=== PATIENT | female | born 1950 | race Hispanic/Latino ===

== ENCOUNTER 2017-07-06 20:11 | Emergency (ER) | payer MEDICARE, MEDICAID ==
[2017-07-06 20:11] VITALS: BMI 25.1
[2017-07-06 20:13] VITALS: RESP 18; TEMP 98.3
--- NOTE | 2017-07-06 22:17 | US ---
EXAM: US Abdomen Limited, Right Upper Quadrant CLINICAL HISTORY: 66 years old, female; Pain; Abdominal pain; Epigastric; Additional info: Ruq pain TECHNIQUE: Real-time ultrasound of the right upper quadrant with image documentation. COMPARISON: No relevant prior studies available. FINDINGS: Liver: Enlarged, 18.1 cm. Normal echogenicity. No mass. No intrahepatic bile duct dilatation. Gallbladder: 1.3 cm nonshadowing, nonmobile echogenic focus within fundus. Sludge. No wall thickening. No pericholecystic fluid. No sonographic Thomson's sign. Common bile duct: No dilatation. No stones. Pancreas: Unremarkable as visualized. Right kidney: Normal echogenicity. No hydronephrosis. IMPRESSION: 1. Gallbladder lesion. DDX: Adherent nonshadowing gallstone, large polyp, neoplasm. 2. Gallbladder sludge. 3. Incidental/non-acute findings are described above.
--- NOTE | 2017-07-06 22:21 | ED PDOC ---
HPI: Abdomen Time Seen by Provider: 07/06/17 20:20 Chief Complaint (Nursing): Abdominal Pain Chief Complaint (Provider): Abdominal Pain History Per: Patient History/Exam Limitations: no limitations Onset/Duration Of Symptoms: Days (x1 week) Current Symptoms Are (Timing): Still Present Location Of Pain/Discomfort: RUQ Additional Complaint(s): Zoya Salcedo, a 66 year old female, with past medical history of CVA with left hemiparesis, hypothyroidism, DVT, neuropathy presents to ED complaining of abdominal pain x1 week. The patient reports that the pain is worsening and radiates from the right side of her abdomen to her righ lower back. She states that she has taken Motrin, Mylanta and Pepcid with no relief. Denies associated constipated, nausea, vomiting, urinary symptoms. Past Medical History Reviewed: Historical Data, Nursing Documentation, Vital Signs Vital Signs: Last Vital Signs Temp 98.3 F 07/06/17 20:12 Pulse 70 07/07/17 00:30 Resp 18 07/07/17 00:30 BP 130/68 07/07/17 00:30 Pulse Ox 98 07/07/17 00:32 - Medical History PMH: Anxiety (OCD), CVA, Depression, Deep Vein Thrombosis (11/2014), HTN, Hypercholesterolemia, Hypothyroidism Denies: HIV, Chronic Kidney Disease - Surgical History Surgical History: No Surg Hx - Family History Family History: States: Unknown Family Hx - Social History Current smoker - smoking cessation education provided: No Alcohol: None Drugs: Denies - Home Medications Home Medications: Ambulatory Orders Medication Instructions Recorded Clopidogrel [Plavix] 75 mg PO DAILY #0 tab 12/02/15 Aspirin [Ecotrin] 81 mg PO DAILY 04/27/16 Atorvastatin [Lipitor] 80 mg PO HS 04/30/16 Levothyroxine [Synthroid] 125 mcg PO DAILY@0630 #0 tab 05/19/16 Gabapentin [Neurontin] 300 mg PO BID 09/19/16 Melatonin [Melatin] 1 tab PO HS 09/19/16 Sertraline [Zoloft] PO DAILY 09/19/16 Cyclobenzaprine [Flexeril] 5 mg PO TID PRN #60 tab 09/20/16 Ibuprofen [Motrin Tab] 600 mg PO Q8 PRN #30 tab 09/20/16 oxyCODONE/Acetaminophen [Percocet 1 tab PO Q4 PRN #10 tab 09/20/16 5/325 mg Tab] traMADol [Ultram] 50 mg PO Q6 #12 tab 07/06/17 - Allergies Allergies/Adverse Reactions: Allergies Allergy/AdvReac Type Severity Reaction Status Date / Time No Known Allergies Allergy Verified 08/16/16 16:29 Review of Systems ROS Statement: Except As Marked, All Systems Reviewed And Found Negative Gastrointestinal: Positive for: Abdominal Pain. Negative for: Nausea, Vomiting , Constipation Genitourinary Female: Negative for: Dysuria, Frequency, Incontinence, Hematuria Physical Exam - Reviewed Nursing Documentation Reviewed: Yes Vital Signs Reviewed: Yes - Physical Exam Appears: Positive for: Non-toxic, No Acute Distress Head Exam: Positive for: ATRAUMATIC, NORMAL INSPECTION, NORMOCEPHALIC Skin: Positive for: Normal Color, Warm, Dry. Negative for: Rash Eye Exam: Positive for: Normal appearance, EOMI, PERRL. Negative for: Nystagmus ENT: Positive for: Normal ENT Inspection. Negative for: Nasal Congestion, Tonsillar Exudate Neck: Positive for: Normal, Painless ROM, Supple Cardiovascular/Chest: Positive for: Regular Rate, Rhythm, Chest Non Tender. Negative for: Tachycardia Respiratory: Positive for: Normal Breath Sounds. Negative for: Wheezing, Respiratory Distress Gastrointestinal/Abdominal: Positive for: Bowel Sounds, Soft, Tenderness (Right upper quadrant tenderness). Negative for: Guarding, Rebound Back: Positive for: Normal Inspection. Negative for: L CVA Tenderness, R CVA Tenderness Extremity: Positive for: Normal ROM. Negative for: Tenderness, Deformity, Swelling Neurologic/Psych: Positive for: Alert, Oriented, Gait, Other (left charly-paresis due to history of stroke.) - Laboratory Results Result Diagrams: 07/06/17 23:28 07/06/17 23:28 - ECG O2 Sat by Pulse Oximetry: 98 (RA) Pulse Ox Interpretation: Normal Medical Decision Making Medical Decision Makin Initial Impression: 66 y/o female presenting with right upper quadrant pain Initial Plan: * EKG * CMP * Lipase * CBC * Toradol 10mg IV * US Abdomen Limited * Reevaluation Time: 23:00 Clinical Impression: Biliary Colic, Improved --Ultrasound and labs show no clinically significant abnormalities. --Patient is stable for discharge in ambulance due to left sided hemiparalysis Scribe Attestation Documented by Rochelle Santana and Warner Kong, acting as a scribe for Eder Nix MD. Provider Attestation All medical record entries made by the Scribe were at my direction and personally dictated by me. I have reviewed the chart and agree that the record accurately reflects my personal performance of the history, physical exam, medical decision making, and the department course for this patient. I have also personally directed, reviewed, and agree with the discharge instructions and disposition. Disposition - Clinical Impression Clinical Impression: Biliary colic - Patient ED Disposition Is Patient to be Admitted: No Counseled Patient/Family Regarding: Studies Performed, Diagnosis - Disposition Disposition: Routine/Home Disposition Time: 23:00 Condition: STABLE Prescriptions: traMADol [Ultram] 50 mg PO Q6 #12 tab Instructions: Biliary Colic (ED) Forms: [facility] (Slovak) - POA Present On Arrival: None
[2017-07-06 23:32] LABS: BASO # 0.1 K/uL (0.0-0.2); BASO % 0.7 % (0.0-2.0); EOS % 0.1 % (0.0-4.0); HEMATOCRIT 34.1 % (34.0-47.0); LYMPH # 1.6 K/uL (1.0-4.3); LYMPH % 15.2 % (20.0-40.0); MEAN CELL VOLUME 95.5 fl (81.0-99.0); MEAN CORPUSCULAR HEMOGLOBIN 31.2 pg (27.0-31.0); MEAN CORPUSCULAR HGB CONC 32.6 g/dL (33.0-37.0); MEAN PLATELET VOLUME 9.7 fl (7.2-11.7); MONO # 0.8 K/uL (0.0-0.8); NEUT # 7.9 K/uL (1.8-7.0); NRBC % 0.1 % (0.0-0.0); RED CELL DISTRIBUTION WIDTH 15.1 % (11.5-14.5); WHITE BLOOD COUNT 10.4 K/uL (4.8-10.8)
[2017-07-06 23:42] LABS: ALB/GLOB RATIO 1.1 (1.0-2.1); ALKALINE PHOSPHATASE 109 U/L (38-126); ALT/SGPT 26 U/L (9-52); AST/SGOT 30 U/L (14-36); BILIRUBIN,TOTAL 1.1 mg/dl (0.2-1.3); BLOOD UREA NITROGEN 15 mg/dl (7-17); CALCIUM 9.3 mg/dL (8.4-10.2); CARBON DIOXIDE 22 mmol/L (22-30); CHLORIDE 106 mmol/L (98-107); GFR AFRICAN-AMERICAN > 60; GLUCOSE,RANDOM 113 mg/dL (65-105); LIPASE 66 U/L (23-300); POTASSIUM 4.2 MMOL/L (3.6-5.0); SODIUM 145 mmol/l (132-148); TOTAL PROTEIN 7.9 G/DL (6.3-8.2)
[2017-07-07 00:30] VITALS: BP 130/68; PULSE 70
[2017-07-07 00:33] VITALS: O2SAT 98
--- NOTE | 2017-07-07 12:06 | CARD ---
APPROVED REPORT EKG Measurement Heart [id number] MA 128P3 [id number] <Conclusion> Normal sinus rhythm
== END 2017-07-07 00:31 | disposition home or self-care (01) ==
LOC: H.ER 20:11
DX: K80.51 Calculus of bile duct without cholangitis or cholecystitis with obstruction (principal); Z86.73 Personal history of transient ischemic attack (TIA), and cerebral infarction without residual deficits; E03.9 Hypothyroidism, unspecified
CPT/HCPCS: 76705; 80053; 83690; 85025; 93005; 96374; 99284; J1885

== ENCOUNTER 2017-07-10 21:52 | Inpatient (IN) | payer MEDICARE, OTHER ==
[2017-07-10 21:52] VITALS: BMI 25.1
--- NOTE | 2017-07-10 22:45 | ED PDOC ---
HPI: Abdomen Time Seen by Provider: 07/10/17 22:37 Chief Complaint (Nursing): Abdominal Pain Chief Complaint (Provider): Abdominal Pain History Per: Patient History/Exam Limitations: no limitations Onset/Duration Of Symptoms: Days (x 5 days) Current Symptoms Are (Timing): Still Present Additional Complaint(s): Patient is a 66 y/o female with a past medical of previous stroke, hypertension, deep vein thrombosis, hypothyroidism, and neuropathy, who presents to the ED complaining of right upper quadrant abdominal pain x 5 days. Patient was seen in this facility 5 days ago and was diagnosed with biliary colic, but reports the pain has become progressively worse since going home. She reports taking Ibuprofen just [employer] with little to no relief, but denies any further symptoms. PMD: [facility] Past Medical History Reviewed: Historical Data, Nursing Documentation, Vital Signs Vital Signs: Last Vital Signs Temp 97.9 F 07/11/17 01:45 Pulse 73 07/11/17 01:45 Resp 16 07/11/17 01:45 BP 128/73 07/11/17 01:45 Pulse Ox 96 07/11/17 02:13 - Medical History PMH: Anxiety (OCD), CVA, Depression, Deep Vein Thrombosis (11/2014), HTN, Hypercholesterolemia, Hypothyroidism Denies: HIV, Chronic Kidney Disease - Surgical History Surgical History: No Surg Hx - Family History Family History: States: No Known Family Hx, Unknown Family Hx - Social History Current smoker - smoking cessation education provided: No Alcohol: None Drugs: Denies - Home Medications Home Medications: Ambulatory Orders Medication Instructions Recorded Clopidogrel [Plavix] 75 mg PO DAILY #0 tab 12/02/15 Aspirin [Ecotrin] 81 mg PO DAILY 04/27/16 Atorvastatin [Lipitor] 80 mg PO HS 04/30/16 Levothyroxine [Synthroid] 125 mcg PO DAILY@0630 #0 tab 05/19/16 Gabapentin [Neurontin] 300 mg PO BID 09/19/16 Melatonin [Melatin] 1 tab PO HS 09/19/16 Sertraline [Zoloft] 12.5 mg PO DAILY 09/19/16 Cyclobenzaprine [Flexeril] 5 mg PO TID PRN #60 tab 09/20/16 Ibuprofen [Motrin Tab] 600 mg PO Q8 PRN #30 tab 09/20/16 oxyCODONE/Acetaminophen [Percocet 1 tab PO Q4 PRN #10 tab 09/20/16 5/325 mg Tab] traMADol [Ultram] 50 mg PO Q6 #12 tab 07/06/17 - Allergies Allergies/Adverse Reactions: Allergies Allergy/AdvReac Type Severity Reaction Status Date / Time No Known Allergies Allergy Verified 07/10/17 21:57 Review of Systems ROS Statement: Except As Marked, All Systems Reviewed And Found Negative Gastrointestinal: Positive for: Abdominal Pain (Right upper quadrant) Physical Exam - Reviewed Nursing Documentation Reviewed: Yes Vital Signs Reviewed: Yes - Physical Exam Appears: Positive for: Uncomfortable Head Exam: Positive for: ATRAUMATIC, NORMOCEPHALIC Skin: Positive for: Normal Color, Warm, Dry Eye Exam: Positive for: Normal appearance, EOMI, PERRL Neck: Positive for: Normal, Painless ROM, Supple Cardiovascular/Chest: Positive for: Regular Rate, Rhythm. Negative for: Murmur Respiratory: Positive for: Normal Breath Sounds. Negative for: Respiratory Distress Gastrointestinal/Abdominal: Positive for: Tenderness (right upper quadrant) Back: Positive for: Normal Inspection. Negative for: L CVA Tenderness, R CVA Tenderness, Vertebral Tenderness Extremity: Positive for: Normal ROM. Negative for: Pedal Edema Neurologic/Psych: Positive for: Alert, Oriented (x3), Other (Left Hemiparesis from previous stroke) - Laboratory Results Result Diagrams: 07/10/17 22:39 07/10/17 22:50 - ECG O2 Sat by Pulse Oximetry: 96 (RA) Pulse Ox Interpretation: Normal Medical Decision Making Medical Decision Making: Time: 22:38 Initial Impression: 66 y/o female with right upper quadrant pain Initial Plan: -CT Abdomen/Pelvis -EKG -Labs -Gastroenterology consult -Liquid Diet -Aluminum Hydroxide/Magnesium 30ml PO -Morphine 4mg IVP -Sodium Chloride 0.9% 1000 ml -Famotidine 20mg IVP -Ketorolac 10 mg IVP -Piperacillin/tazobact 3.375 gm -Zofran 4mg -Heplock insertion -Call gastroenterology Consult -Knee AE hose -Urinalysis -Admit to hospital routine 23:30 Labs reviewed, significant derangement of liver function tests which were normal 4 days ago. Case discussed with [place]. Patient will be admitted and placed in Obs for further workout and treatment. 23:45 CT abdomen/pelvis FINDINGS: Lower thorax: Bibasilar atelectasis. The bilateral lung bases are clear. ABDOMEN: Liver: No acute findings. Gallbladder and bile ducts: The gallbladder is distended, with mild intrahepatic biliary ductal dilatation. Gallbladder wall thickening, with adjacent inflammation is also noted. Pancreas: Enhances homogeneously. No ductal dilation. No discrete mass. Spleen: No acute findings. Adrenals: No acute findings. Kidneys and ureters: No acute findings. No hydronephrosis or renal calculi. No discrete solid mass. PELVIS: Bladder: No acute findings. Reproductive: No acute findings. Appendix: The air filled appendix is of normal caliber (series 2, image 57). ABDOMEN and PELVIS: Stomach and bowel: No obstruction. No mucosal thickening. Peritoneum: No significant fluid collection. No free air. Lymph nodes: No pathologically enlarged lymph nodes. Vasculature: Unremarkable. Bones: No acute fracture. IMPRESSION: Moderate gallbladder distention with wall thickening, findings suggestive of acute cholecystitis, for which clinical correlation is needed. 00:30 Diagnosis: Intractable abdominal pain biliary colic, acute cholecystitis Scribe Attestation: Documented by Wu Clemente, acting as a scribe for Eder Nix MD Provider Scribe Attestation: All medical record entries made by the Scribe were at my direction and personally dictated by me. I have reviewed the chart and agree that the record accurately reflects my personal performance of the history, physical exam, medical decision making, and the department course for this patient. I have also personally directed, reviewed, and agree with the discharge instructions and disposition. Disposition - Clinical Impression Clinical Impression: Cholecystitis - Patient ED Disposition Is Patient to be Admitted: Yes - Disposition Disposition Time: 22:40 Condition: FAIR
[2017-07-10 22:55] LABS: BASO # 0.1 K/uL (0.0-0.2); BASO % 0.8 % (0.0-2.0); EOS % 0.1 % (0.0-4.0); LYMPH # 1.4 K/uL (1.0-4.3); LYMPH % 11.4 % (20.0-40.0); MEAN CELL VOLUME 93.7 fl (81.0-99.0); MEAN CORPUSCULAR HEMOGLOBIN 30.3 pg (27.0-31.0); MEAN CORPUSCULAR HGB CONC 32.4 g/dL (33.0-37.0); MEAN PLATELET VOLUME 8.8 fl (7.2-11.7); MONO # 0.6 K/uL (0.0-0.8); MONO % 4.8 % (0.0-10.0); NEUT # 9.9 K/uL (1.8-7.0); NEUT % 82.9 % (50.0-75.0); RED CELL DISTRIBUTION WIDTH 14.6 % (11.5-14.5); WHITE BLOOD COUNT 11.9 K/uL (4.8-10.8)
[2017-07-10] MEDS: Sodium Chloride 0.9% 1,000 ML IV SCH (23:16)
[2017-07-10 23:37] LABS: ALB/GLOB RATIO 1.1 (1.0-2.1); ALKALINE PHOSPHATASE 380 U/L (38-126); ALT/SGPT 82 U/L (9-52); AST/SGOT 161 U/L (14-36); BLOOD UREA NITROGEN 17 mg/dl (7-17); CALCIUM 9.1 mg/dL (8.4-10.2); CARBON DIOXIDE 26 mmol/L (22-30); CHLORIDE 106 mmol/L (98-107); GFR AFRICAN-AMERICAN > 60; GLUCOSE,RANDOM 115 mg/dL (65-105); LIPASE 98 U/L (23-300); POTASSIUM 3.7 MMOL/L (3.6-5.0); SODIUM 145 mmol/l (132-148); TOTAL PROTEIN 7.4 G/DL (6.3-8.2)
[2017-07-11] MEDS ORDERED: Iohexol 300 100 ML IJ ONE (00:05)
[2017-07-11] MEDS ORDERED: Sodium Chloride 0.9% 50 ML IV ONE (00:06)
--- NOTE | 2017-07-11 00:49 | CT ---
EXAM: CT Abdomen and Pelvis With Intravenous Contrast CLINICAL HISTORY: 66 years old, female; Pain; Abdominal pain; Localized; Right upper quadrant (ruq); Prior surgery; Surgery date: 6+ months; Surgery type: Hysterectomy; Additional info: Ruq pain TECHNIQUE: Axial computed tomography images of the abdomen and pelvis with intravenous contrast. All CT scans at this facility use one or more dose reduction techniques, viz.: automated exposure control; ma/kV adjustment per patient size (including targeted exams where dose is matched to indication; i.e. head); or iterative reconstruction technique. Coronal and sagittal reformatted images were created and reviewed. CONTRAST: 95 mL of [id number] administered intravenously. COMPARISON: CT ABD AND PELVIS 12/16/2012 8:17:16 AM FINDINGS: Lower thorax: Bibasilar atelectasis. The bilateral lung bases are clear. ABDOMEN: Liver: No acute findings. Gallbladder and bile ducts: The gallbladder is distended, with mild intrahepatic biliary ductal dilatation. Gallbladder wall thickening, with adjacent inflammation is also noted. Pancreas: Enhances homogeneously. No ductal dilation. No discrete mass. Spleen: No acute findings. Adrenals: No acute findings. Kidneys and ureters: No acute findings. No hydronephrosis or renal calculi. No discrete solid mass. PELVIS: Bladder: No acute findings. Reproductive: No acute findings. Appendix: The air filled appendix is of normal caliber (series 2, image 57). ABDOMEN and PELVIS: Stomach and bowel: No obstruction. No mucosal thickening. Peritoneum: No significant fluid collection. No free air. Lymph nodes: No pathologically enlarged lymph nodes. Vasculature: Unremarkable. Bones: No acute fracture. IMPRESSION: Moderate gallbladder distention with wall thickening, findings suggestive of acute cholecystitis, for which clinical correlation is needed.
[2017-07-11] MEDS ORDERED: Piperacillin/Tazobact 3.375 GM in Sodium Chloride 0.9% 100 ML IV STA (00:51)
[2017-07-11] MEDS ORDERED: Alum-Mag Hydrox-Simethicone Susp (30 mL) PO STA (00:57)
[2017-07-11] MEDS ORDERED: Piperacillin/Tazobact 3.375 gm Inj IVPB ONE (01:17)
[2017-07-11] MEDS ORDERED: Alum-Mag Hydrox-Simethicone Susp (30 mL) ONE (01:17)
[2017-07-11] MEDS ORDERED: Oxycodone/Acetaminophen 5/325 mg Tab PO PRN (06:22)
[2017-07-11] MEDS: Levothyroxine 125 MCG TAB PO SCH (06:44)
--- NOTE | 2017-07-11 08:14 | CP.PCM.HP ---
History of Present Illness - History of Present Illness History of Present Illness: pt admitted for persistent ruq pain. had elev lft in ER. imaging from 2 days ago demonstrated ?? abnormality of gall bladder. at present pain is contrlled. ptstates pain feels like when she had h pylori. no f/c, n/v/d. po tolerant labs noted Present on Admission - Present on Admission Any Indicators Present on Admission: No Review of Systems - Gastrointestinal Gastrointestinal: As Per HPI, Abdominal Pain Past Patient History - Past Medical History & Family History Past Medical History?: Yes - Past Social History Smoking Status: Former Smoker - CARDIAC Hx Cardiac Disorders: Yes Hx Hypercholesterolemia: Yes Hx Hypertension: Yes - PULMONARY Hx Respiratory Disorders: No - NEUROLOGICAL Hx Neurological Disorder: Yes HX Cerebrovascular Accident: Yes (04/27/2016) Hx Parkinson's Disease: Yes (unable to move left side of body) - HEENT Hx HEENT Problems: No - RENAL Hx Chronic Kidney Disease: No - ENDOCRINE/METABOLIC Hx Endocrine Disorders: Yes Hx Hypothyroidism: Yes - HEMATOLOGICAL/ONCOLOGICAL Hx Blood Disorders: No Hx AIDS: No Hx Human Immunodeficiency Virus (HIV): No - INTEGUMENTARY Hx Dermatological Problems: No - MUSCULOSKELETAL/RHEUMATOLOGICAL Hx Musculoskeletal Disorders: Yes Hx Falls: Yes (1 yr ago from CVA) - GASTROINTESTINAL Hx Gastrointestinal Disorders: Yes Hx Gastroesophageal Reflux: Yes - GENITOURINARY/GYNECOLOGICAL Hx Genitourinary Disorders: No - PSYCHIATRIC Hx Psychophysiologic Disorder: Yes Hx Depression: Yes Hx Substance Use: No - SURGICAL HISTORY Hx Surgeries: Yes 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) Hx Vascular Surgery: Yes (with Stent x 1 to R leg DVT hx) - ANESTHESIA Hx Anesthesia: Yes Hx Anesthesia Reactions: No Hx Malignant Hyperthermia: No Meds Allergies/Adverse Reactions: Allergies Allergy/AdvReac Type Severity Reaction Status Date / Time No Known Allergies Allergy Verified 07/10/17 21:57 Physical Exam - Constitutional Appears: Well, Non-toxic, No Acute Distress - Head Exam Head Exam: ATRAUMATIC, NORMAL INSPECTION, NORMOCEPHALIC - Eye Exam Eye Exam: EOMI, Normal appearance, PERRL Pupil Exam: NORMAL ACCOMODATION, PERRL - ENT Exam ENT Exam: Mucous Membranes Moist, Normal Exam - Neck Exam Neck exam: Positive for: Normal Inspection - Respiratory Exam Respiratory Exam: Clear to Auscultation Bilateral, NORMAL BREATHING PATTERN - Cardiovascular Exam Cardiovascular Exam: REGULAR RHYTHM, RRR, +S1, +S2 - GI/Abdominal Exam GI & Abdominal Exam: Normal Bowel Sounds, Soft, Tenderness Additional comments: ruq - Extremities Exam Extremities exam: Positive for: full ROM, normal capillary refill, normal inspection, pedal pulses present - Back Exam Back exam: NORMAL INSPECTION - Neurological Exam Neurological exam: Alert, CN II-XII Intact, Normal Gait, Oriented x3, Reflexes Normal - Psychiatric Exam Psychiatric exam: Normal Affect, Normal Mood - Skin Skin Exam: Dry, Intact, Normal Color, Warm Results - Vital Signs Recent Vital Signs: Last Vital Signs Temp 97.9 F 07/11/17 07:38 Pulse 54 L 07/11/17 07:38 Resp 18 07/11/17 07:38 BP 107/66 07/11/17 07:38 Pulse Ox 99 07/11/17 07:38 - Labs Result Diagrams: 07/10/17 22:39 07/10/17 22:50 Labs: Laboratory Results - last 24 hr 07/10/17 07/10/17 07/11/17 22:39 22:50 01:20 WBC 11.9 H RBC 3.73 L Hgb 11.3 L Hct 35.0 MCV 93.7 MCH 30.3 MCHC 32.4 L RDW 14.6 H Plt Count 248 MPV 8.8 Neut % (Auto) 82.9 H Lymph % (Auto) 11.4 L [place] % (Auto) 4.8 Eos % (Auto) 0.1 Baso % (Auto) 0.8 Neut # 9.9 H Lymph # 1.4 [place] # 0.6 Eos # 0.0 Baso # 0.1 Sodium 145 Potassium 3.7 Chloride 106 Carbon Dioxide 26 Anion Gap 17 BUN 17 Creatinine 0.8 Est GFR ( Amer) > 60 Est GFR (Non-Af Amer) > 60 Random Glucose 115 H Lactic Acid 1.2 Calcium 9.1 Total Bilirubin 1.0 AST 161 H D ALT 82 H D Alkaline Phosphatase 380 H D Total Protein 7.4 Albumin 3.9 Globulin 3.5 Albumin/Globulin Ratio 1.1 Lipase 98 Assessment & Plan (1) Biliary colic Assessment and Plan: w/ ruq pain elev lft, trend labs gi/surgery consult ivf, pain control Status: Acute (2) DVT prophylaxis Assessment and Plan: scd and aehose ambulation hold anticoag until surgical option r/o Status: Acute Decision To Admit - Pt Status Changed To: Hospital Disposition Of: Observation - . Bed Request Type: Med/Surg Admitting Physician: Benny Martinez
[2017-07-11] MEDS: Sodium Chloride 0.9% 1,000 ML IV SCH ×2 (08:24→17:10)
[2017-07-11 08:49] LABS: BASO % 0.5 % (0.0-2.0); EOS % 0.3 % (0.0-4.0); HEMATOCRIT 31.8 % (34.0-47.0); LYMPH # 0.7 K/uL (1.0-4.3); LYMPH % 10.7 % (20.0-40.0); MEAN CORPUSCULAR HEMOGLOBIN 31.2 pg (27.0-31.0); MEAN CORPUSCULAR HGB CONC 33.6 g/dL (33.0-37.0); MEAN PLATELET VOLUME 9.1 fl (7.2-11.7); MONO # 0.4 K/uL (0.0-0.8); NEUT # 5.7 K/uL (1.8-7.0); NEUT % 82.5 % (50.0-75.0); NRBC % 0.1 % (0.0-0.0); RED CELL DISTRIBUTION WIDTH 14.5 % (11.5-14.5); WHITE BLOOD COUNT 6.9 K/uL (4.8-10.8)
[2017-07-11 09:13] LABS: ALB/GLOB RATIO 1.1 (1.0-2.1); ALKALINE PHOSPHATASE 405 U/L (38-126); ALT/SGPT 478 U/L (9-52); AST/SGOT 691 U/L (14-36); BILIRUBIN,TOTAL 1.8 mg/dl (0.2-1.3); BLOOD UREA NITROGEN 14 mg/dl (7-17); CALCIUM 8.6 mg/dL (8.4-10.2); CARBON DIOXIDE 28 mmol/L (22-30); CHLORIDE 108 mmol/L (98-107); GFR AFRICAN-AMERICAN > 60; GLUCOSE,RANDOM 108 mg/dL (65-105); POTASSIUM 4.2 MMOL/L (3.6-5.0); SODIUM 147 mmol/l (132-148); TOTAL PROTEIN 6.7 G/DL (6.3-8.2)
--- NOTE | 2017-07-11 10:03 | CP.PCM.CON ---
History of Present Illness - History of Present Illness History of Present Illness: Surgery Reason for consult: RUQ pain CC: RUQ pain HPI: Patient is a 66 y/o female with sign. pmhx of recent stroke in April 2017, currently on ASA and plavix, presents complaining of RUQ abdominal pain that started acutely 1 week ago. She states over the past week the pain progressively got worse which prompted ER visit. She states the pain is isolated to the right upper portion of her abdomen and does not radiate. She states she has had similar pain in the past however would resolve on its own. She states the pain usually occurs a couple hours after meals. She reports eating a diet that is high in fat and not maintaining good eating habits. She denies any associated symptoms of n/v/f/c/diarrhea or constipation. She denies dysuria or hematuria. She reports having a EGD/colonoscopy about 6 months ago which, per patient, were normal. PMH: HTN, HLD, Stroke w/ residual left side charly-paralysis, H pylori s/p treatment, anxiety/depression, hypothyroid PSH: tonsillectomy, hysterectomy Social: denies ETOH, tobacco, or drug abuse. Former smoker. Lives with family, has 5 sisters and a daughter that assists with ADLs. Review of Systems - Review of Systems All systems: reviewed and no additional remarkable complaints except Review of Systems: unless stated in HPI Past Patient History - Past Medical History & Family History Past Medical History?: Yes - Past Social History Smoking Status: Former Smoker - CARDIAC Hx Cardiac Disorders: Yes Hx Hypercholesterolemia: Yes Hx Hypertension: Yes - PULMONARY Hx Respiratory Disorders: No - NEUROLOGICAL Hx Neurological Disorder: Yes HX Cerebrovascular Accident: Yes (04/27/2016) Hx Parkinson's Disease: Yes (unable to move left side of body) - HEENT Hx HEENT Problems: No - RENAL Hx Chronic Kidney Disease: No - ENDOCRINE/METABOLIC Hx Endocrine Disorders: Yes Hx Hypothyroidism: Yes - HEMATOLOGICAL/ONCOLOGICAL Hx Blood Disorders: No Hx AIDS: No Hx Human Immunodeficiency Virus (HIV): No - INTEGUMENTARY Hx Dermatological Problems: No - MUSCULOSKELETAL/RHEUMATOLOGICAL Hx Musculoskeletal Disorders: Yes Hx Falls: Yes (1 yr ago from CVA) - GASTROINTESTINAL Hx Gastrointestinal Disorders: Yes Hx Gastroesophageal Reflux: Yes - GENITOURINARY/GYNECOLOGICAL Hx Genitourinary Disorders: No - PSYCHIATRIC Hx Psychophysiologic Disorder: Yes Hx Depression: Yes Hx Substance Use: No - SURGICAL HISTORY Hx Surgeries: Yes 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) Hx Vascular Surgery: Yes (with Stent x 1 to R leg DVT hx) - ANESTHESIA Hx Anesthesia: Yes Hx Anesthesia Reactions: No Hx Malignant Hyperthermia: No Meds Allergies/Adverse Reactions: Allergies Allergy/AdvReac Type Severity Reaction Status Date / Time No Known Allergies Allergy Verified 07/10/17 21:57 - Medications Medications: Current Medications Aspirin (Ecotrin) 81 mg PO DAILY [facility] Atorvastatin Calcium (Lipitor) 80 mg PO HS [facility] Clopidogrel Bisulfate (Plavix) 75 mg PO DAILY [facility] Cyclobenzaprine HCl (Flexeril) 5 mg PO TID PRN PRN Reason: Muscle spasm Famotidine (Pepcid) 20 mg IVP Q12 [facility] Last Admin: 07/11/17 08:29 Dose: 20 mg Gabapentin (Neurontin) 300 mg PO BID [facility] Home Med (Melatonin [Melatin]) 1 tab PO HS [facility] Sodium Chloride (Sodium Chloride 0.9%) 1,000 mls @ 125 mls/hr IV .Q8H [facility] Stop: 07/11/17 22:49 Last Admin: 07/11/17 08:24 Dose: 125 mls/hr Ibuprofen (Motrin Tab) 600 mg PO Q8 PRN PRN Reason: Pain, moderate (4-7) Ketorolac Tromethamine (Toradol) 30 mg IVP Q6 PRN PRN Reason: Pain, moderate (4-7) Levothyroxine Sodium (Synthroid) 125 mcg PO DAILY@0630 [facility] Last Admin: 07/11/17 06:44 Dose: Not Given Morphine Sulfate (Morphine) 4 mg IVP Q4 PRN PRN Reason: Pain, severe (8-10) Last Admin: 07/11/17 06:40 Dose: 4 mg Ondansetron HCl (Zofran Inj) 4 mg IVP Q6 PRN PRN Reason: Nausea/Vomiting Oxycodone/Acetaminophen (Percocet 5/325 Mg Tab) 1 tab PO Q4 PRN PRN Reason: Pain, severe (8-10) Stop: 07/14/17 06:23 Sertraline HCl (Zoloft) 12.5 mg PO DAILY [facility] Tramadol HCl (Ultram) 50 mg PO Q6 [facility] Physical Exam - Constitutional Appears: Non-toxic, No Acute Distress - Head Exam Head Exam: ATRAUMATIC, NORMOCEPHALIC - Eye Exam Eye Exam: EOMI, Normal appearance - ENT Exam ENT Exam: Mucous Membranes Moist - Respiratory Exam Respiratory Exam: NORMAL BREATHING PATTERN. absent: Respiratory Distress - Cardiovascular Exam Cardiovascular Exam: REGULAR RHYTHM. absent: Tachycardia - GI/Abdominal Exam GI & Abdominal Exam: Soft. absent: Distended, Guarding, Rebound, Rigid, Tenderness Additional comments: negative velasquez's - Extremities Exam Extremities exam: Positive for: normal inspection. Negative for: calf tenderness - Neurological Exam Neurological exam: Alert, Oriented x3 - Psychiatric Exam Psychiatric exam: Normal Affect, Normal Mood - Skin Skin Exam: Dry, Normal Color, Warm Results - Vital Signs Recent Vital Signs: Last Vital Signs Temp 97.9 F 07/11/17 07:38 Pulse 54 L 07/11/17 07:38 Resp 18 07/11/17 07:38 BP 107/66 07/11/17 07:38 Pulse Ox 99 07/11/17 07:38 - Labs Result Diagrams: 07/11/17 08:00 07/11/17 08:00 Labs: Laboratory Results - last 24 hr 07/10/17 07/10/17 07/11/17 22:39 22:50 01:20 WBC 11.9 H RBC 3.73 L Hgb 11.3 L Hct 35.0 MCV 93.7 MCH 30.3 MCHC 32.4 L RDW 14.6 H Plt Count 248 MPV 8.8 Neut % (Auto) 82.9 H Lymph % (Auto) 11.4 L [place] % (Auto) 4.8 Eos % (Auto) 0.1 Baso % (Auto) 0.8 Neut # 9.9 H Lymph # 1.4 [place] # 0.6 Eos # 0.0 Baso # 0.1 Sodium 145 Potassium 3.7 Chloride 106 Carbon Dioxide 26 Anion Gap 17 BUN 17 Creatinine 0.8 Est GFR ( Amer) > 60 Est GFR (Non-Af Amer) > 60 Random Glucose 115 H Lactic Acid 1.2 Calcium 9.1 Total Bilirubin 1.0 AST 161 H D ALT 82 H D Alkaline Phosphatase 380 H D Total Protein 7.4 Albumin 3.9 Globulin 3.5 Albumin/Globulin Ratio 1.1 Lipase 98 07/11/17 07/11/17 08:00 08:00 WBC 6.9 RBC 3.42 L Hgb 10.7 L Hct 31.8 L MCV 93.0 MCH 31.2 H MCHC 33.6 RDW 14.5 Plt Count 202 MPV 9.1 Neut % (Auto) 82.5 H Lymph % (Auto) 10.7 L [place] % (Auto) 6.0 Eos % (Auto) 0.3 Baso % (Auto) 0.5 Neut # 5.7 Lymph # 0.7 L [place] # 0.4 Eos # 0.0 Baso # 0.0 Sodium 147 Potassium 4.2 Chloride 108 H Carbon Dioxide 28 Anion Gap 15 BUN 14 Creatinine 0.8 Est GFR ( Amer) > 60 Est GFR (Non-Af Amer) > 60 Random Glucose 108 H Lactic Acid Calcium 8.6 Total Bilirubin 1.8 H AST 691 H D ALT 478 H D Alkaline Phosphatase 405 H Total Protein 6.7 Albumin 3.4 L Globulin 3.2 Albumin/Globulin Ratio 1.1 Lipase - Impressions Impression: RUQ u/s w/ gallbladder 1/3 cm lesion, polyp vs nonshadowing stone, sludge Assessment & Plan - Assessment and Plan (Free Text) Assessment: 66 y/o female w/ RUQ abdominal pain and transaminitis Plan: -f/u MRCP to better evaluate gallbladder pathology seen on U/S -NPO -IVFs -pain control -daily labs -OOB -IS use -pending MRCP determines further surgical recs -patient still on ASA/plavix, need to evaluate risk/benefit of antiplatelet meds being held prior to any surgical intervention considering recent stroke -further recs per attending AKWhite PGY3
--- NOTE | 2017-07-11 14:50 | MRI ---
MRCP Indication: Intractable abdominal pain, biliary collar Technique: Multiplanar, multisequence MR images of the abdomen were obtained, including heavily T2 weighted MRCP images of the biliary system. Rotating maximum intensity projection images of the biliary system were generated. A total of 608 images were submitted for review. Comparison: Limited abdominal ultrasound performed 07/06/17, CT of the abdomen and pelvis with IV contrast performed 07/11/17 Findings: Examination limited due to patient condition and difficulty with breath hold. Mild hepatic steatosis. Probable sludge and gallstones within the gallbladder. Small gallbladder polyps suspected along the anti dependent portions of the gallbladder wall. Mild gallbladder wall thickening. Mild intrahepatic biliary ductal dilatation. Limited visualization of the common bile duct and pancreatic duct do not appear dilated. No definite focal filling defects are seen in the common bile duct or pancreatic duct. However, in retrospect on CT performed earlier the same day suspect 2 mm echogenic focus at the distal CBD, possibly calculus. The noncontrast visualized portions of the adrenal glands, kidneys, spleen, and pancreas appear unremarkable. No bulky abdominal lymphadenopathy is seen. No ascites. Proximal duodenal diverticulum. Bibasilar atelectasis. No acute osseous abnormality is detected. Impression: Limited study. Hepatic steatosis. Probable sludge and gallstones within the gallbladder. Small gallbladder polyps along the anti dependent gallbladder wall suspected. Mild gallbladder wall thickening. Correlate clinically for possibility of cholecystitis. Limited visualization of the common bile duct does not appear dilated. No definite focal filling defect is identified within the common bile duct. However, in retrospect on CT performed earlier the same day suspect 2 mm echogenic focus at the distal CBD, possibly tiny calculus. Mild intrahepatic biliary ductal dilatation. Small duodenal diverticulum Bibasilar atelectasis. Case discussed with Dr. Blanco on 07/11/17 at 1:57 p.m.
[2017-07-11 15:37] LABS: RBC URINE 7 /hpf (0-3); URINE BACTERIA MANY (<OCC); URINE BILIRUBIN NEGATIVE (NEGATIVE); URINE BLOOD SMALL (NEGATIVE); URINE COLOR AMBER (YELLOW); URINE GLUCOSE (UA) NEG (Normal); URINE KETONE NEGATIVE (NEGATIVE); URINE LEUKOCYTE ESTERASE TRACE Leu/uL (Negative); URINE PROTEIN 30 mg/dL (NEGATIVE); WBC URINE 2 /hpf (0-5)
[2017-07-11] MEDS: Piperacillin/Tazobact 3.375 GM in Sodium Chloride 0.9% 100 ML IVPB SCH ×2 (17:03→21:26)
[2017-07-11] MEDS ORDERED: Patient's Own Med (Atorvastatin [Lipitor] 80 MG) PO SCH (22:00)
[2017-07-11] MEDS ORDERED: Patient's Own Med (Melatonin [Melatin] 1 TAB) PO SCH (22:00)
--- NOTE | 2017-07-12 00:21 | CON ---
DATE OF SERVICE: 07/11/2017 REASON FOR CONSULTATION: Abdominal pain. HISTORY OF PRESENT ILLNESS: This is a 66-year-old female was in the ER a couple of days ago, sent home for mild pain with no etiology, now returns with abdominal pain, discomfort, and some questionable cholecystitis. The patient is currently lying in bed, comfortable, in no apparent distress, has no fever, chills, nausea, vomiting, or rejection of food. PAST MEDICAL HISTORY: As above. PAST SURGICAL HISTORY: As above. MEDICATIONS: Reviewed. REVIEW OF SYSTEMS: All other systems have been reviewed and negative apart from the HPI. PHYSICAL EXAMINATION: GENERAL: A pleasant elderly-appearing female, lying in bed comfortably, in no apparent distress. VITAL SIGNS: In the hospital, grossly unremarkable. HEENT: Head is normocephalic and atraumatic. Eyes, pupils equal, round, and reactive to light bilaterally. No conjunctival pallor or icterus. NECK: Supple. Normal range of motion. No lymphadenopathy appreciated. LUNGS: Coarse breath sounds bilaterally. HEART: S1 and S2. Regular rate and rhythm. No murmurs appreciated. ABDOMEN: Soft, nontender. Bowel sounds present. No rebound. No guarding. RECTAL: Deferred. EXTREMITIES: Pulses felt bilaterally. SKIN: Warm, dry, and intact. NEUROLOGIC: A and O x3. LABORATORY DATA: Labs have been reviewed, WBC 11.9, hemoglobin is stable, total bilirubin 1.8, AST , alkaline phosphatase 384, now 405. Lipase is normal. CAT scan shows questionable gallbladder wall thickening. MRCP is ordered, but not read. ASSESSMENT AND PLAN: This is a 66-year-old female with biliary colic. From gastrointestinal standpoint, if MRCP positive, we will consider ERCP. If the MRCP is negative, consider laparoscopic cholecystectomy. From a gastrointestinal standpoint, we will follow up with surgery recommendation. Thank you for the consult. Kaveh Foreman MD/ PhD cc: Dr. Aguila
[2017-07-12] MEDS: Piperacillin/Tazobact 3.375 GM in Sodium Chloride 0.9% 100 ML IVPB SCH ×4 (03:20→21:13)
[2017-07-12] MEDS: Levothyroxine 125 MCG TAB PO SCH (06:17)
[2017-07-12 06:32] LABS: BASO % 0.7 % (0.0-2.0); EOS % 0.3 % (0.0-4.0); HEMATOCRIT 28.7 % (34.0-47.0); LYMPH % 22.1 % (20.0-40.0); MEAN CELL VOLUME 93.8 fl (81.0-99.0); MONO # 0.3 K/uL (0.0-0.8); MONO % 6.8 % (0.0-10.0); NEUT % 70.1 % (50.0-75.0); NRBC % 0.1 % (0.0-0.0); RED CELL DISTRIBUTION WIDTH 14.3 % (11.5-14.5); WHITE BLOOD COUNT 4.3 K/uL (4.8-10.8)
[2017-07-12 06:36] LABS: ALKALINE PHOSPHATASE 380 U/L (38-126); ALT/SGPT 451 U/L (9-52); AST/SGOT 330 U/L (14-36); BILIRUBIN,TOTAL 3.2 mg/dl (0.2-1.3); BLOOD UREA NITROGEN 10 mg/dl (7-17); CALCIUM 7.9 mg/dL (8.4-10.2); CARBON DIOXIDE 24 mmol/L (22-30); CHLORIDE 109 mmol/L (98-107); GFR AFRICAN-AMERICAN > 60; GLUCOSE,RANDOM 91 mg/dL (65-105); POTASSIUM 3.7 MMOL/L (3.6-5.0); SODIUM 142 mmol/l (132-148)
[2017-07-12 06:41] LABS: ALB/GLOB RATIO 0.9 (1.0-2.1)
--- NOTE | 2017-07-12 07:13 | CP.PCM.PN ---
Subjective - Date & Time of Evaluation Date of Evaluation: 07/12/17 Time of Evaluation: 07:12 - Subjective Subjective: pain more controlled. no f/c, n/v/d. pt states is hungry bw noted. mrcp noted pt for ercp tomorrow aleman snot wish to stop asa/plavix Objective - Vital Signs/Intake and Output Vital Signs (last 24 hours): Temp Pulse Resp BP Pulse Ox 99.0 F 77 19 130/73 94 L 07/12/17 00:00 07/12/17 00:00 07/12/17 00:00 07/12/17 00:00 07/12/17 00:00 - Medications Medications: Current Medications Aspirin (Aspirin Chewable) 81 mg PO DAILY [facility] Atorvastatin Calcium (Lipitor) 80 mg PO HS [facility] Last Admin: 07/11/17 21:25 Dose: 80 mg Clopidogrel Bisulfate (Plavix) 75 mg PO DAILY [facility] Cyclobenzaprine HCl (Flexeril) 5 mg PO TID PRN PRN Reason: Muscle spasm Famotidine (Pepcid) 20 mg IVP Q12 [facility] Last Admin: 07/11/17 21:26 Dose: 20 mg Gabapentin (Neurontin) 300 mg PO BID [facility] Last Admin: 07/11/17 17:06 Dose: 300 mg Piperacillin Sod/Tazobactam (Sod 3.375 gm/ Sodium Chloride) 100 mls @ 100 mls/ hr IVPB Q6 [facility] Last Admin: 07/12/17 03:20 Dose: 100 mls/hr Ibuprofen (Motrin Tab) 600 mg PO Q8 PRN PRN Reason: Pain, moderate (4-7) Last Admin: 07/12/17 06:37 Dose: 600 mg Ketorolac Tromethamine (Toradol) 30 mg IVP Q6 PRN PRN Reason: Pain, moderate (4-7) Levothyroxine Sodium (Synthroid) 125 mcg PO DAILY@0630 [facility] Last Admin: 07/12/17 06:17 Dose: 125 mcg Morphine Sulfate (Morphine) 4 mg IVP Q4 PRN PRN Reason: Pain, severe (8-10) Last Admin: 07/11/17 06:40 Dose: 4 mg Ondansetron HCl (Zofran Inj) 4 mg IVP Q6 PRN PRN Reason: Nausea/Vomiting Oxycodone/Acetaminophen (Percocet 5/325 Mg Tab) 1 tab PO Q4 PRN PRN Reason: Pain, severe (8-10) Stop: 07/14/17 06:23 Sertraline HCl (Zoloft) 12.5 mg PO DAILY [facility] Last Admin: 07/11/17 17:07 Dose: 12.5 mg Tramadol HCl (Ultram) 50 mg PO Q6 [facility] Last Admin: 07/12/17 03:23 Dose: Not Given - Labs Labs: 07/12/17 05:40 07/12/17 05:40 - Constitutional Appears: Well, Non-toxic, No Acute Distress - Head Exam Head Exam: ATRAUMATIC, NORMAL INSPECTION, NORMOCEPHALIC - Eye Exam Eye Exam: EOMI, Normal appearance, PERRL Pupil Exam: NORMAL ACCOMODATION, PERRL - ENT Exam ENT Exam: Mucous Membranes Moist, Normal Exam - Neck Exam Neck Exam: Full ROM, Normal Inspection. absent: Lymphadenopathy - Respiratory Exam Respiratory Exam: Clear to Ausculation Bilateral, NORMAL BREATHING PATTERN - Cardiovascular Exam Cardiovascular Exam: REGULAR RHYTHM, +S1, +S2. absent: Murmur - GI/Abdominal Exam GI & Abdominal Exam: Soft, Normal Bowel Sounds. absent: Tenderness - Extremities Exam Extremities Exam: Full ROM, Normal Capillary Refill, Normal Inspection. absent : Joint Swelling, Pedal Edema - Back Exam Back Exam: NORMAL INSPECTION - Neurological Exam Neurological Exam: Alert, Awake, CN II-XII Intact, Normal Gait, Oriented x3 - Psychiatric Exam Psychiatric exam: Normal Affect, Normal Mood - Skin Skin Exam: Dry, Intact, Normal Color, Warm Assessment and Plan (1) Biliary colic Status: Acute (2) DVT prophylaxis Status: Acute - Assessment and Plan (Free Text) Assessment: (1) Biliary colic/cholelithiasis/cholecystitis Assessment and Plan: w/ ruq pain elev lft, trend labs gi/surgery consult ivf, pain control zosyn after lengthy conversation pt does not wish to be off asa/plavix as she is scared of ahaving another stroke. will make npo after midnight for ercp Status: Acute (2) DVT prophylaxis Assessment and Plan: scd and aehose ambulation hold anticoag until surgical option r/o Status: Acute
--- NOTE | 2017-07-12 09:58 | CP.PCM.PN ---
Subjective - Date & Time of Evaluation Date of Evaluation: 07/12/17 Time of Evaluation: 09:15 - Subjective Subjective: Patient was seen and examined at the bedside. States that has no abdominal pain , tolerating clear liquid diet. Objective - Vital Signs/Intake and Output Vital Signs (last 24 hours): Temp Pulse Resp BP Pulse Ox 97.9 F 65 20 134/70 94 L 07/12/17 08:44 07/12/17 08:44 07/12/17 08:44 07/12/17 08:44 07/12/17 08:44 - Medications Medications: Current Medications Aspirin (Aspirin Chewable) 81 mg PO DAILY [facility] Atorvastatin Calcium (Lipitor) 80 mg PO HS [facility] Last Admin: 07/11/17 21:25 Dose: 80 mg Clopidogrel Bisulfate (Plavix) 75 mg PO DAILY [facility] Last Admin: 07/12/17 09:35 Dose: 75 mg Cyclobenzaprine HCl (Flexeril) 5 mg PO TID PRN PRN Reason: Muscle spasm Famotidine (Pepcid) 20 mg IVP Q12 [facility] Last Admin: 07/11/17 21:26 Dose: 20 mg Gabapentin (Neurontin) 300 mg PO BID [facility] Last Admin: 07/12/17 09:35 Dose: 300 mg Piperacillin Sod/Tazobactam (Sod 3.375 gm/ Sodium Chloride) 100 mls @ 100 mls/ hr IVPB Q6 [facility] Last Admin: 07/12/17 09:38 Dose: 100 mls/hr Ibuprofen (Motrin Tab) 600 mg PO Q8 PRN PRN Reason: Pain, moderate (4-7) Last Admin: 07/12/17 06:37 Dose: 600 mg Ketorolac Tromethamine (Toradol) 30 mg IVP Q6 PRN PRN Reason: Pain, moderate (4-7) Levothyroxine Sodium (Synthroid) 125 mcg PO DAILY@0630 [facility] Last Admin: 07/12/17 06:17 Dose: 125 mcg Morphine Sulfate (Morphine) 4 mg IVP Q4 PRN PRN Reason: Pain, severe (8-10) Last Admin: 07/11/17 06:40 Dose: 4 mg Ondansetron HCl (Zofran Inj) 4 mg IVP Q6 PRN PRN Reason: Nausea/Vomiting Oxycodone/Acetaminophen (Percocet 5/325 Mg Tab) 1 tab PO Q4 PRN PRN Reason: Pain, severe (8-10) Stop: 07/14/17 06:23 Sertraline HCl (Zoloft) 12.5 mg PO DAILY [facility] Last Admin: 07/12/17 09:36 Dose: 12.5 mg Tramadol HCl (Ultram) 50 mg PO Q6 [facility] Last Admin: 07/12/17 09:41 Dose: 50 mg - Labs Labs: 07/12/17 05:40 07/12/17 05:40 - Constitutional Appears: Well, Non-toxic, No Acute Distress - Head Exam Head Exam: ATRAUMATIC, NORMAL INSPECTION, NORMOCEPHALIC - Eye Exam Eye Exam: EOMI, PERRL, Scleral icterus Pupil Exam: NORMAL ACCOMODATION - ENT Exam ENT Exam: Mucous Membranes Moist, Normal Exam - Neck Exam Neck Exam: Full ROM, Normal Inspection - Respiratory Exam Respiratory Exam: Clear to Ausculation Bilateral, NORMAL BREATHING PATTERN - Cardiovascular Exam Cardiovascular Exam: REGULAR RHYTHM, +S1, +S2 - GI/Abdominal Exam GI & Abdominal Exam: Soft, Normal Bowel Sounds Additional comments: NT, ND, BS+, no rebound, no guarding, negative Thomson's sign, well healed scar from prior surgery - Rectal Exam Rectal Exam: Deferred - Extremities Exam Extremities Exam: Normal Inspection - Neurological Exam Neurological Exam: Alert, Awake, Oriented x3 - Psychiatric Exam Psychiatric exam: Normal Affect, Normal Mood - Skin Skin Exam: Dry, Intact, Normal Color, Warm Assessment and Plan - Assessment and Plan (Free Text) Assessment: 66 y.o. female with choledocholithiasis Plan: - Plan for ERCP tomorrow with GI - Continue clear liquid diet - pain control - IV fluids - NPO after midnight - Continue antibiotics - Repeat labs in am - Will follow
--- NOTE | 2017-07-12 10:59 | CP.PCM.PN ---
Subjective - Date & Time of Evaluation Date of Evaluation: 07/12/17 Time of Evaluation: 10:55 - Subjective Subjective: no pain Objective - Vital Signs/Intake and Output Vital Signs (last 24 hours): Temp Pulse Resp BP Pulse Ox 97.9 F 65 20 134/70 94 L 07/12/17 08:44 07/12/17 08:44 07/12/17 08:44 07/12/17 08:44 07/12/17 08:44 - Medications Medications: Current Medications Aspirin (Aspirin Chewable) 81 mg PO DAILY [facility] Atorvastatin Calcium (Lipitor) 80 mg PO HS [facility] Last Admin: 07/11/17 21:25 Dose: 80 mg Clopidogrel Bisulfate (Plavix) 75 mg PO DAILY [facility] Last Admin: 07/12/17 09:35 Dose: 75 mg Cyclobenzaprine HCl (Flexeril) 5 mg PO TID PRN PRN Reason: Muscle spasm Famotidine (Pepcid) 20 mg IVP Q12 [facility] Last Admin: 07/11/17 21:26 Dose: 20 mg Gabapentin (Neurontin) 300 mg PO BID [facility] Last Admin: 07/12/17 09:35 Dose: 300 mg Piperacillin Sod/Tazobactam (Sod 3.375 gm/ Sodium Chloride) 100 mls @ 100 mls/ hr IVPB Q6 [facility] Last Admin: 07/12/17 09:38 Dose: 100 mls/hr Ibuprofen (Motrin Tab) 600 mg PO Q8 PRN PRN Reason: Pain, moderate (4-7) Last Admin: 07/12/17 06:37 Dose: 600 mg Ketorolac Tromethamine (Toradol) 30 mg IVP Q6 PRN PRN Reason: Pain, moderate (4-7) Levothyroxine Sodium (Synthroid) 125 mcg PO DAILY@0630 [facility] Last Admin: 07/12/17 06:17 Dose: 125 mcg Morphine Sulfate (Morphine) 4 mg IVP Q4 PRN PRN Reason: Pain, severe (8-10) Last Admin: 07/11/17 06:40 Dose: 4 mg Ondansetron HCl (Zofran Inj) 4 mg IVP Q6 PRN PRN Reason: Nausea/Vomiting Oxycodone/Acetaminophen (Percocet 5/325 Mg Tab) 1 tab PO Q4 PRN PRN Reason: Pain, severe (8-10) Stop: 07/14/17 06:23 Sertraline HCl (Zoloft) 12.5 mg PO DAILY [facility] Last Admin: 07/12/17 09:36 Dose: 12.5 mg Tramadol HCl (Ultram) 50 mg PO Q6 [facility] Last Admin: 07/12/17 09:41 Dose: 50 mg - Labs Labs: 07/12/17 05:40 07/12/17 05:40 - Head Exam Head Exam: NORMAL INSPECTION - Neck Exam Neck Exam: Normal Inspection - Respiratory Exam Respiratory Exam: NORMAL BREATHING PATTERN - Cardiovascular Exam Cardiovascular Exam: REGULAR RHYTHM - GI/Abdominal Exam GI & Abdominal Exam: Soft, Normal Bowel Sounds Assessment and Plan - Assessment and Plan (Free Text) Assessment: 66 yo female with cholecystitis and elevated lft passed cbd stone versus ball-valving cbd stone d/w PMD, patient and surgery plan for ercp with stent placement (pt is on plavix), with cholecystectomy to be scheduled risks/benefits explained and pt accepts risks
[2017-07-13] MEDS: Piperacillin/Tazobact 3.375 GM in Sodium Chloride 0.9% 100 ML IVPB SCH ×4 (04:31→21:11)
[2017-07-13 06:24] LABS: BASO % 0.8 % (0.0-2.0); HEMATOCRIT 29.9 % (34.0-47.0); LYMPH # 1.2 K/uL (1.0-4.3); LYMPH % 26.8 % (20.0-40.0); MEAN CELL VOLUME 93.7 fl (81.0-99.0); MEAN CORPUSCULAR HEMOGLOBIN 30.7 pg (27.0-31.0); MEAN CORPUSCULAR HGB CONC 32.8 g/dL (33.0-37.0); MEAN PLATELET VOLUME 8.9 fl (7.2-11.7); MONO # 0.3 K/uL (0.0-0.8); MONO % 6.6 % (0.0-10.0); NEUT # 3.1 K/uL (1.8-7.0); NEUT % 65.8 % (50.0-75.0); RED CELL DISTRIBUTION WIDTH 13.9 % (11.5-14.5); WHITE BLOOD COUNT 4.7 K/uL (4.8-10.8)
[2017-07-13 06:35] LABS: ALKALINE PHOSPHATASE 380 U/L (38-126); ALT/SGPT 353 U/L (9-52); AST/SGOT 168 U/L (14-36); BILIRUBIN,TOTAL 1.7 mg/dl (0.2-1.3); BLOOD UREA NITROGEN 8 mg/dl (7-17); CALCIUM 8.5 mg/dL (8.4-10.2); CARBON DIOXIDE 23 mmol/L (22-30); CHLORIDE 109 mmol/L (98-107); GFR AFRICAN-AMERICAN > 60; GLUCOSE,RANDOM 88 mg/dL (65-105); POTASSIUM 3.7 MMOL/L (3.6-5.0); SODIUM 145 mmol/l (132-148); TOTAL PROTEIN 6.4 G/DL (6.3-8.2)
[2017-07-13] MEDS: Levothyroxine 125 MCG TAB PO SCH (06:42)
--- NOTE | 2017-07-13 07:32 | CP.PCM.PN ---
Subjective - Date & Time of Evaluation Date of Evaluation: 07/13/17 Time of Evaluation: 07:32 - Subjective Subjective: pt doing well, w/o complaints. nof /c, n/v/d. bw noted. lft, t bili and alk phos trending down. was for ercp today but pt refused anesthesia Objective - Vital Signs/Intake and Output Vital Signs (last 24 hours): Temp Pulse Resp BP Pulse Ox 97.3 F L 62 19 145/75 95 07/13/17 00:00 07/13/17 00:00 07/13/17 00:00 07/13/17 00:00 07/13/17 00:00 - Medications Medications: Current Medications Aspirin (Aspirin Chewable) 81 mg PO DAILY [facility] Last Admin: 07/12/17 09:35 Dose: 81 mg Atorvastatin Calcium (Lipitor) 80 mg PO HS [facility] Last Admin: 07/12/17 21:12 Dose: 80 mg Clopidogrel Bisulfate (Plavix) 75 mg PO DAILY [facility] Last Admin: 07/12/17 09:35 Dose: 75 mg Cyclobenzaprine HCl (Flexeril) 5 mg PO TID PRN PRN Reason: Muscle spasm Famotidine (Pepcid) 20 mg IVP Q12 [facility] Last Admin: 07/12/17 21:12 Dose: 20 mg Gabapentin (Neurontin) 300 mg PO BID [facility] Last Admin: 07/12/17 17:18 Dose: 300 mg Piperacillin Sod/Tazobactam (Sod 3.375 gm/ Sodium Chloride) 100 mls @ 100 mls/ hr IVPB Q6 [facility] Last Admin: 07/13/17 04:31 Dose: 100 mls/hr Ibuprofen (Motrin Tab) 600 mg PO Q8 PRN PRN Reason: Pain, moderate (4-7) Last Admin: 07/12/17 06:37 Dose: 600 mg Indomethacin (Indocin Suppository) 100 mg PA ONCE ONE Stop: 07/13/17 10:01 Ketorolac Tromethamine (Toradol) 30 mg IVP Q6 PRN PRN Reason: Pain, moderate (4-7) Levothyroxine Sodium (Synthroid) 125 mcg PO DAILY@0630 [facility] Last Admin: 07/13/17 06:42 Dose: Not Given Morphine Sulfate (Morphine) 4 mg IVP Q4 PRN PRN Reason: Pain, severe (8-10) Last Admin: 07/11/17 06:40 Dose: 4 mg Ondansetron HCl (Zofran Inj) 4 mg IVP Q6 PRN PRN Reason: Nausea/Vomiting Oxycodone/Acetaminophen (Percocet 5/325 Mg Tab) 1 tab PO Q4 PRN PRN Reason: Pain, severe (8-10) Stop: 07/14/17 06:23 Sertraline HCl (Zoloft) 12.5 mg PO DAILY [facility] Last Admin: 07/12/17 09:36 Dose: 12.5 mg Tramadol HCl (Ultram) 50 mg PO Q6 [facility] Last Admin: 07/13/17 04:29 Dose: Not Given - Labs Labs: 07/13/17 05:25 07/13/17 05:25 - Constitutional Appears: Well, Non-toxic, No Acute Distress - Head Exam Head Exam: ATRAUMATIC, NORMAL INSPECTION, NORMOCEPHALIC - Eye Exam Eye Exam: EOMI, Normal appearance, PERRL Pupil Exam: NORMAL ACCOMODATION, PERRL - ENT Exam ENT Exam: Mucous Membranes Moist, Normal Exam - Neck Exam Neck Exam: Full ROM, Normal Inspection. absent: Lymphadenopathy - Respiratory Exam Respiratory Exam: Clear to Ausculation Bilateral, NORMAL BREATHING PATTERN - Cardiovascular Exam Cardiovascular Exam: REGULAR RHYTHM, RRR, +S1, +S2. absent: Murmur - GI/Abdominal Exam GI & Abdominal Exam: Soft, Normal Bowel Sounds. absent: Tenderness - Extremities Exam Extremities Exam: Full ROM, Normal Capillary Refill, Normal Inspection. absent : Joint Swelling, Pedal Edema - Back Exam Back Exam: NORMAL INSPECTION - Neurological Exam Neurological Exam: Abnormal Gait, Alert, Awake, CN II-XII Intact, Oriented x3 - Psychiatric Exam Psychiatric exam: Normal Affect, Normal Mood - Skin Skin Exam: Dry, Intact, Normal Color, Warm Assessment and Plan (1) Biliary colic Status: Acute (2) DVT prophylaxis Status: Acute - Assessment and Plan (Free Text) Assessment: (1) Biliary colic/cholelithiasis/cholecystitis Assessment and Plan: w/ ruq pain elev lft, trend labs gi/surgery consult ivf, pain control zosyn after lengthy conversation pt does not wish to be off asa/plavix as she is scared of ahaving another stroke. will make npo after midnight for ercp likley dc today or tomorrow Status: Acute (2) DVT prophylaxis Assessment and Plan: scd and aehose ambulation hold anticoag until surgical option r/o Status: Acute 3-uti-ecoli zosyn outpt bactrim
[2017-07-13] MEDS ORDERED: Iohexol 240 (50 ml) ONE (08:30)
[2017-07-13] MEDS ORDERED: Glucagon Recombinant 1 mg Inj ONE (08:49)
--- NOTE | 2017-07-13 09:37 | CP.PCM.PN ---
<Mee Sams - Last Filed: 07/13/17 09:40> Subjective - Date & Time of Evaluation Date of Evaluation: 07/13/17 Time of Evaluation: 07:40 - Subjective Subjective: Patient seen and examined this AM. NAEO. Patient denies any pain, nausea, vomiting, or any other symptoms. States she has not had a bowel movement for several days and would like a stool softener Objective - Vital Signs/Intake and Output Vital Signs (last 24 hours): Temp Pulse Resp BP Pulse Ox 97.7 F 67 20 151/70 H 93 L 07/13/17 07:57 07/13/17 07:57 07/13/17 07:57 07/13/17 07:57 07/13/17 07:57 - Medications Medications: Current Medications Aspirin (Aspirin Chewable) 81 mg PO DAILY [facility] Last Admin: 07/12/17 09:35 Dose: 81 mg Atorvastatin Calcium (Lipitor) 80 mg PO HS [facility] Last Admin: 07/12/17 21:12 Dose: 80 mg Clopidogrel Bisulfate (Plavix) 75 mg PO DAILY [facility] Last Admin: 07/12/17 09:35 Dose: 75 mg Cyclobenzaprine HCl (Flexeril) 5 mg PO TID PRN PRN Reason: Muscle spasm Famotidine (Pepcid) 20 mg IVP Q12 [facility] Last Admin: 07/13/17 08:50 Dose: 20 mg Gabapentin (Neurontin) 300 mg PO BID [facility] Last Admin: 07/12/17 17:18 Dose: 300 mg Piperacillin Sod/Tazobactam (Sod 3.375 gm/ Sodium Chloride) 100 mls @ 100 mls/ hr IVPB Q6 [facility] Last Admin: 07/13/17 09:00 Dose: 100 mls/hr Ibuprofen (Motrin Tab) 600 mg PO Q8 PRN PRN Reason: Pain, moderate (4-7) Last Admin: 07/12/17 06:37 Dose: 600 mg Indomethacin (Indocin Suppository) 100 mg IN ONCE ONE Stop: 07/13/17 10:01 Ketorolac Tromethamine (Toradol) 30 mg IVP Q6 PRN PRN Reason: Pain, moderate (4-7) Levothyroxine Sodium (Synthroid) 125 mcg PO DAILY@0630 [facility] Last Admin: 07/13/17 06:42 Dose: Not Given Morphine Sulfate (Morphine) 4 mg IVP Q4 PRN PRN Reason: Pain, severe (8-10) Last Admin: 07/11/17 06:40 Dose: 4 mg Ondansetron HCl (Zofran Inj) 4 mg IVP Q6 PRN PRN Reason: Nausea/Vomiting Oxycodone/Acetaminophen (Percocet 5/325 Mg Tab) 1 tab PO Q4 PRN PRN Reason: Pain, severe (8-10) Stop: 07/14/17 06:23 Sertraline HCl (Zoloft) 12.5 mg PO DAILY [facility] Last Admin: 07/12/17 09:36 Dose: 12.5 mg Tramadol HCl (Ultram) 50 mg PO Q6 [facility] Last Admin: 07/13/17 04:29 Dose: Not Given - Labs Labs: 07/13/17 05:25 07/13/17 05:25 - Constitutional Appears: Non-toxic, No Acute Distress - Head Exam Head Exam: ATRAUMATIC, NORMOCEPHALIC - Eye Exam Eye Exam: Normal appearance. absent: Conjunctival injection, Scleral icterus - ENT Exam ENT Exam: Mucous Membranes Moist, Normal Oropharynx - Respiratory Exam Respiratory Exam: NORMAL BREATHING PATTERN. absent: Accessory Muscle Use, Respiratory Distress - Cardiovascular Exam Cardiovascular Exam: RRR - GI/Abdominal Exam GI & Abdominal Exam: Soft. absent: Distended, Tenderness Additional comments: negative velasquez's sign - Extremities Exam Extremities Exam: absent: Calf Tenderness, Pedal Edema, Tenderness - Neurological Exam Neurological Exam: Alert, Awake, Oriented x3 - Psychiatric Exam Psychiatric exam: Normal Affect, Normal Mood - Skin Skin Exam: Dry, Intact, Normal Color, Warm Assessment and Plan - Assessment and Plan (Free Text) Assessment: 66 y/o Female with choledocholithiasis Plan: - Patient's total bilirubin continues to trend down - Follow up with GI regarding recommendations and possible ERCP - Keep NPO currently. Advance diet as tolerated if no ERCP planned - pain control - IV fluids - Continue antibiotics - Repeat labs in am - Patient continuing to take plavix. Will have to hold to plan for surgery Discussed with Dr. Cornelius Sams, PGY2 <Ricky Shields - Last Filed: 07/13/17 10:07> Subjective - Date & Time of Evaluation Date of Evaluation: 07/13/17 Time of Evaluation: 09:35 - Subjective Subjective: Patient was seen and examined at the bedside. Agree with resident's note above. Objective - Vital Signs/Intake and Output Vital Signs (last 24 hours): Temp Pulse Resp BP Pulse Ox 97.7 F 67 20 151/70 H 93 L 07/13/17 07:57 07/13/17 07:57 07/13/17 07:57 07/13/17 07:57 07/13/17 07:57 - Medications Medications: Current Medications Aspirin (Aspirin Chewable) 81 mg PO DAILY [facility] Last Admin: 07/12/17 09:35 Dose: 81 mg Atorvastatin Calcium (Lipitor) 80 mg PO HS [facility] Last Admin: 07/12/17 21:12 Dose: 80 mg Clopidogrel Bisulfate (Plavix) 75 mg PO DAILY [facility] Last Admin: 07/12/17 09:35 Dose: 75 mg Cyclobenzaprine HCl (Flexeril) 5 mg PO TID PRN PRN Reason: Muscle spasm Famotidine (Pepcid) 20 mg IVP Q12 [facility] Last Admin: 07/13/17 08:50 Dose: 20 mg Gabapentin (Neurontin) 300 mg PO BID [facility] Last Admin: 07/12/17 17:18 Dose: 300 mg Piperacillin Sod/Tazobactam (Sod 3.375 gm/ Sodium Chloride) 100 mls @ 100 mls/ hr IVPB Q6 [facility] Last Admin: 07/13/17 09:00 Dose: 100 mls/hr Ibuprofen (Motrin Tab) 600 mg PO Q8 PRN PRN Reason: Pain, moderate (4-7) Last Admin: 07/12/17 06:37 Dose: 600 mg Ketorolac Tromethamine (Toradol) 30 mg IVP Q6 PRN PRN Reason: Pain, moderate (4-7) Levothyroxine Sodium (Synthroid) 125 mcg PO DAILY@0630 [facility] Last Admin: 07/13/17 06:42 Dose: Not Given Morphine Sulfate (Morphine) 4 mg IVP Q4 PRN PRN Reason: Pain, severe (8-10) Last Admin: 07/11/17 06:40 Dose: 4 mg Ondansetron HCl (Zofran Inj) 4 mg IVP Q6 PRN PRN Reason: Nausea/Vomiting Oxycodone/Acetaminophen (Percocet 5/325 Mg Tab) 1 tab PO Q4 PRN PRN Reason: Pain, severe (8-10) Stop: 07/14/17 06:23 Sertraline HCl (Zoloft) 12.5 mg PO DAILY [facility] Last Admin: 07/12/17 09:36 Dose: 12.5 mg Tramadol HCl (Ultram) 50 mg PO Q6 [facility] Last Admin: 07/13/17 04:29 Dose: Not Given - Labs Labs: 07/13/17 05:25 07/13/17 05:25
[2017-07-13] MEDS ORDERED: Indomethacin 50 MG Suppository PR ONE (10:00)
--- NOTE | 2017-07-13 12:39 | CP.PCM.PN ---
Subjective - Date & Time of Evaluation Date of Evaluation: 07/13/17 Time of Evaluation: 12:20 - Subjective Subjective: no pain Objective - Vital Signs/Intake and Output Vital Signs (last 24 hours): Temp Pulse Resp BP Pulse Ox 97.7 F 67 20 151/70 H 93 L 07/13/17 07:57 07/13/17 07:57 07/13/17 07:57 07/13/17 07:57 07/13/17 07:57 - Medications Medications: Current Medications Aspirin (Aspirin Chewable) 81 mg PO DAILY [facility] Last Admin: 07/12/17 09:35 Dose: 81 mg Atorvastatin Calcium (Lipitor) 80 mg PO HS [facility] Last Admin: 07/12/17 21:12 Dose: 80 mg Clopidogrel Bisulfate (Plavix) 75 mg PO DAILY [facility] Last Admin: 07/12/17 09:35 Dose: 75 mg Cyclobenzaprine HCl (Flexeril) 5 mg PO TID PRN PRN Reason: Muscle spasm Famotidine (Pepcid) 20 mg PO Q12 [facility] Gabapentin (Neurontin) 300 mg PO BID [facility] Last Admin: 07/12/17 17:18 Dose: 300 mg Piperacillin Sod/Tazobactam (Sod 3.375 gm/ Sodium Chloride) 100 mls @ 100 mls/ hr IVPB Q6 [facility] Last Admin: 07/13/17 09:00 Dose: 100 mls/hr Ibuprofen (Motrin Tab) 600 mg PO Q8 PRN PRN Reason: Pain, moderate (4-7) Last Admin: 07/12/17 06:37 Dose: 600 mg Ketorolac Tromethamine (Toradol) 30 mg IVP Q6 PRN PRN Reason: Pain, moderate (4-7) Levothyroxine Sodium (Synthroid) 125 mcg PO DAILY@0630 [facility] Last Admin: 07/13/17 06:42 Dose: Not Given Morphine Sulfate (Morphine) 4 mg IVP Q4 PRN PRN Reason: Pain, severe (8-10) Last Admin: 07/11/17 06:40 Dose: 4 mg Ondansetron HCl (Zofran Inj) 4 mg IVP Q6 PRN PRN Reason: Nausea/Vomiting Oxycodone/Acetaminophen (Percocet 5/325 Mg Tab) 1 tab PO Q4 PRN PRN Reason: Pain, severe (8-10) Stop: 07/14/17 06:23 Sertraline HCl (Zoloft) 12.5 mg PO DAILY [facility] Last Admin: 07/12/17 09:36 Dose: 12.5 mg Tramadol HCl (Ultram) 50 mg PO Q6 [facility] Last Admin: 07/13/17 04:29 Dose: Not Given Trimethoprim/Sulfamethoxazole (Bactrim Ds Tab) 1 tab PO Q12 [facility] - Labs Labs: 07/13/17 05:25 07/13/17 05:25 - Head Exam Head Exam: NORMAL INSPECTION - Eye Exam Eye Exam: Normal appearance Pupil Exam: NORMAL ACCOMODATION - Respiratory Exam Respiratory Exam: Clear to Ausculation Bilateral, NORMAL BREATHING PATTERN - Cardiovascular Exam Cardiovascular Exam: REGULAR RHYTHM - GI/Abdominal Exam GI & Abdominal Exam: Soft, Normal Bowel Sounds Assessment and Plan - Assessment and Plan (Free Text) Assessment: 66 yo female with cholecystist long discussion with patient, PMD and surgery elective surgery +/- IOC, +/- ERCP to be scheduled off plavix (if feasible)
[2017-07-13] MEDS: Tmp-Smz 800 mg-160 mg DS Tab PO SCH ×2 (13:06→21:10)
--- NOTE | 2017-07-13 23:11 | CARD ---
APPROVED REPORT EKG Measurement Heart [id number] <Conclusion> Normal sinus rhythm Low voltage QRS Possible Inferior infarct, age undetermined Abnormal ECG
[2017-07-14] MEDS: Piperacillin/Tazobact 3.375 GM in Sodium Chloride 0.9% 100 ML IVPB SCH ×4 (04:40→22:04)
--- NOTE | 2017-07-14 06:25 | CP.PCM.PN ---
<Jaziel Whitaker - Last Filed: 07/14/17 06:23> Subjective - Date & Time of Evaluation Date of Evaluation: 07/14/17 Time of Evaluation: 05:20 - Subjective Subjective: General Surgery Pt S&E, LETITIA. Pt had RUQ pain around midnight that woke her from sleep. Still sore this AM. She is now worried about going to the snf so she wants toschedule the surgery as soon as possible Objective - Vital Signs/Intake and Output Vital Signs (last 24 hours): Temp Pulse Resp BP Pulse Ox 98.1 F 71 20 156/86 H 98 07/14/17 00:49 07/14/17 00:49 07/14/17 00:49 07/14/17 00:49 07/14/17 00:49 - Medications Medications: Current Medications Aspirin (Aspirin Chewable) 81 mg PO DAILY [facility] Last Admin: 07/13/17 13:04 Dose: 81 mg Atorvastatin Calcium (Lipitor) 80 mg PO HS [facility] Last Admin: 07/13/17 21:10 Dose: 80 mg Clopidogrel Bisulfate (Plavix) 75 mg PO DAILY [facility] Last Admin: 07/13/17 13:05 Dose: 75 mg Cyclobenzaprine HCl (Flexeril) 5 mg PO TID PRN PRN Reason: Muscle spasm Famotidine (Pepcid) 20 mg PO Q12 [facility] Last Admin: 07/13/17 21:10 Dose: 20 mg Gabapentin (Neurontin) 300 mg PO BID [facility] Last Admin: 07/13/17 16:39 Dose: 300 mg Piperacillin Sod/Tazobactam (Sod 3.375 gm/ Sodium Chloride) 100 mls @ 100 mls/ hr IVPB Q6 [facility] Last Admin: 07/14/17 04:40 Dose: 100 mls/hr Ibuprofen (Motrin Tab) 600 mg PO Q8 PRN PRN Reason: Pain, moderate (4-7) Last Admin: 07/12/17 06:37 Dose: 600 mg Ketorolac Tromethamine (Toradol) 30 mg IVP Q6 PRN PRN Reason: Pain, moderate (4-7) Levothyroxine Sodium (Synthroid) 125 mcg PO DAILY@0630 [facility] Last Admin: 07/13/17 06:42 Dose: Not Given Morphine Sulfate (Morphine) 4 mg IVP Q4 PRN PRN Reason: Pain, severe (8-10) Last Admin: 07/14/17 00:36 Dose: 4 mg Ondansetron HCl (Zofran Inj) 4 mg IVP Q6 PRN PRN Reason: Nausea/Vomiting Last Admin: 07/14/17 00:45 Dose: 4 mg Oxycodone/Acetaminophen (Percocet 5/325 Mg Tab) 1 tab PO Q4 PRN PRN Reason: Pain, severe (8-10) Stop: 07/14/17 06:23 Sertraline HCl (Zoloft) 12.5 mg PO DAILY [facility] Last Admin: 07/13/17 13:05 Dose: 12.5 mg Tramadol HCl (Ultram) 50 mg PO Q6 [facility] Last Admin: 07/14/17 04:38 Dose: 50 mg Trimethoprim/Sulfamethoxazole (Bactrim Ds Tab) 1 tab PO Q12 [facility] Last Admin: 07/13/17 21:10 Dose: 1 tab - Labs Labs: 07/13/17 05:25 07/13/17 05:25 - Constitutional Appears: Non-toxic, No Acute Distress - Head Exam Head Exam: ATRAUMATIC, NORMOCEPHALIC - Respiratory Exam Respiratory Exam: NORMAL BREATHING PATTERN. absent: Respiratory Distress - GI/Abdominal Exam GI & Abdominal Exam: Soft, Tenderness (mild in RUQ). absent: Distended, Firm, Guarding, Rigid - Neurological Exam Neurological Exam: Alert, Awake - Skin Skin Exam: Dry, Warm Assessment and Plan - Assessment and Plan (Free Text) Assessment: 66F with passed choledocholithiasis and biliary colic Plan: F/U AM labs Pain control Continue antibiotics Patient continuing to take plavix. Will have to hold to plan for surgery Will D/W Dr. Cornelius Whitaker PGY4 <Ricky Shields - Last Filed: 07/14/17 13:18> Subjective - Date & Time of Evaluation Date of Evaluation: 07/14/17 Time of Evaluation: 12:20 - Subjective Subjective: Patient was seen and examined at the bedside. Agree with resident's note above. LFTs have gone up. Objective - Vital Signs/Intake and Output Vital Signs (last 24 hours): Temp Pulse Resp BP Pulse Ox 98.7 F 77 20 125/69 93 L 07/14/17 08:14 07/14/17 08:14 07/14/17 08:14 07/14/17 08:14 07/14/17 08:14 - Medications Medications: Current Medications Aspirin (Aspirin Chewable) 81 mg PO DAILY [facility] Last Admin: 07/14/17 09:09 Dose: 81 mg Atorvastatin Calcium (Lipitor) 80 mg PO HS [facility] Last Admin: 07/13/17 21:10 Dose: 80 mg Clopidogrel Bisulfate (Plavix) 75 mg PO DAILY [facility] Last Admin: 07/14/17 09:09 Dose: 75 mg Cyclobenzaprine HCl (Flexeril) 5 mg PO TID PRN PRN Reason: Muscle spasm Famotidine (Pepcid) 20 mg PO Q12 [facility] Last Admin: 07/14/17 09:09 Dose: 20 mg Gabapentin (Neurontin) 300 mg PO BID [facility] Last Admin: 07/14/17 09:09 Dose: 300 mg Piperacillin Sod/Tazobactam (Sod 3.375 gm/ Sodium Chloride) 100 mls @ 100 mls/ hr IVPB Q6 [facility] Last Admin: 07/14/17 09:10 Dose: 100 mls/hr Ibuprofen (Motrin Tab) 600 mg PO Q8 PRN PRN Reason: Pain, moderate (4-7) Last Admin: 07/12/17 06:37 Dose: 600 mg Ketorolac Tromethamine (Toradol) 30 mg IVP Q6 PRN PRN Reason: Pain, moderate (4-7) Levothyroxine Sodium (Synthroid) 125 mcg PO DAILY@0630 [facility] Last Admin: 07/14/17 07:06 Dose: 125 mcg Morphine Sulfate (Morphine) 4 mg IVP Q4 PRN PRN Reason: Pain, severe (8-10) Last Admin: 07/14/17 00:36 Dose: 4 mg Ondansetron HCl (Zofran Inj) 4 mg IVP Q6 PRN PRN Reason: Nausea/Vomiting Last Admin: 07/14/17 00:45 Dose: 4 mg Sertraline HCl (Zoloft) 12.5 mg PO DAILY [facility] Last Admin: 07/14/17 09:11 Dose: 12.5 mg Tramadol HCl (Ultram) 50 mg PO Q6 [facility] Last Admin: 07/14/17 09:10 Dose: 50 mg Trimethoprim/Sulfamethoxazole (Bactrim Ds Tab) 1 tab PO Q12 [facility] Last Admin: 07/14/17 09:09 Dose: 1 tab - Labs Labs: 07/14/17 07:15 07/14/17 05:30 Assessment and Plan - Assessment and Plan (Free Text) Plan: - Hold discharge - pain control - Continue antibiotics - Will require ERCP - GI follow up - Repeat labs in am - Will follow
[2017-07-14 06:50] LABS: BASO # 0.1 K/uL (0.0-0.2); BASO % 0.8 % (0.0-2.0); EOS % 0.1 % (0.0-4.0); HEMATOCRIT 32.7 % (34.0-47.0); LYMPH # 0.5 K/uL (1.0-4.3); LYMPH % 6.5 % (20.0-40.0); MEAN CELL VOLUME 93.2 fl (81.0-99.0); MEAN CORPUSCULAR HEMOGLOBIN 30.7 pg (27.0-31.0); MEAN CORPUSCULAR HGB CONC 32.9 g/dL (33.0-37.0); MEAN PLATELET VOLUME 8.9 fl (7.2-11.7); MONO # 0.3 K/uL (0.0-0.8); MONO % 3.3 % (0.0-10.0); NEUT # 7.4 K/uL (1.8-7.0); NEUT % 89.3 % (50.0-75.0); PLATELET COUNT 217 K/uL (130-400); RED CELL DISTRIBUTION WIDTH 14.7 % (11.5-14.5); WHITE BLOOD COUNT 8.3 K/uL (4.8-10.8)
[2017-07-14 07:05] LABS: ALKALINE PHOSPHATASE 618 U/L (38-126); ALT/SGPT 429 U/L (9-52); AST/SGOT 380 U/L (14-36); BILIRUBIN,TOTAL 3.6 mg/dl (0.2-1.3); BLOOD UREA NITROGEN 11 mg/dl (7-17); CALCIUM 8.7 mg/dL (8.4-10.2); CARBON DIOXIDE 26 mmol/L (22-30); CHLORIDE 104 mmol/L (98-107); GFR AFRICAN-AMERICAN > 60; GLUCOSE,RANDOM 106 mg/dL (65-105); POTASSIUM 4.2 MMOL/L (3.6-5.0); SODIUM 143 mmol/l (132-148); TOTAL PROTEIN 6.7 G/DL (6.3-8.2)
[2017-07-14] MEDS: Levothyroxine 125 MCG TAB PO SCH (07:06)
[2017-07-14] MEDS: Tmp-Smz 800 mg-160 mg DS Tab PO SCH ×2 (09:09→22:06)
[2017-07-14 10:18] LABS: BASOPHIL 1 % (0-2); NEUTROPHIL 84 % (42-75); TOTAL CELLS COUNTED 100
[2017-07-14 10:19] LABS: LARGE PLATELETS PRESENT
--- NOTE | 2017-07-14 22:41 | CP.PCM.PN ---
Subjective - Date & Time of Evaluation Date of Evaluation: 07/14/17 Time of Evaluation: 07:39 - Subjective Subjective: pt in nod istress. has some pain and lft incr. as per dr michael no dc today. spoke w/ dr samaniego who will do ercp this week as pt who initially refused the procedure is now agreeable. Objective - Vital Signs/Intake and Output Vital Signs (last 24 hours): Temp Pulse Resp BP Pulse Ox 98.2 F 84 20 117/73 95 07/14/17 16:52 07/14/17 16:52 07/14/17 16:52 07/14/17 16:52 07/14/17 16:52 - Medications Medications: Current Medications Aspirin (Aspirin Chewable) 81 mg PO DAILY [facility] Last Admin: 07/14/17 09:09 Dose: 81 mg Atorvastatin Calcium (Lipitor) 80 mg PO HS [facility] Last Admin: 07/14/17 22:06 Dose: 80 mg Clopidogrel Bisulfate (Plavix) 75 mg PO DAILY [facility] Last Admin: 07/14/17 09:09 Dose: 75 mg Cyclobenzaprine HCl (Flexeril) 5 mg PO TID PRN PRN Reason: Muscle spasm Famotidine (Pepcid) 20 mg PO Q12 [facility] Last Admin: 07/14/17 22:06 Dose: 20 mg Gabapentin (Neurontin) 300 mg PO BID [facility] Last Admin: 07/14/17 16:51 Dose: 300 mg Piperacillin Sod/Tazobactam (Sod 3.375 gm/ Sodium Chloride) 100 mls @ 100 mls/ hr IVPB Q6 [facility] Last Admin: 07/14/17 22:04 Dose: 100 mls/hr Ibuprofen (Motrin Tab) 600 mg PO Q8 PRN PRN Reason: Pain, moderate (4-7) Last Admin: 07/12/17 06:37 Dose: 600 mg Ketorolac Tromethamine (Toradol) 30 mg IVP Q6 PRN PRN Reason: Pain, moderate (4-7) Levothyroxine Sodium (Synthroid) 125 mcg PO DAILY@0630 [facility] Last Admin: 07/14/17 07:06 Dose: 125 mcg Morphine Sulfate (Morphine) 4 mg IVP Q4 PRN PRN Reason: Pain, severe (8-10) Last Admin: 07/14/17 00:36 Dose: 4 mg Ondansetron HCl (Zofran Inj) 4 mg IVP Q6 PRN PRN Reason: Nausea/Vomiting Last Admin: 07/14/17 00:45 Dose: 4 mg Sertraline HCl (Zoloft) 12.5 mg PO DAILY [facility] Last Admin: 07/14/17 09:11 Dose: 12.5 mg Tramadol HCl (Ultram) 50 mg PO Q6 [facility] Last Admin: 07/14/17 22:05 Dose: 50 mg Trimethoprim/Sulfamethoxazole (Bactrim Ds Tab) 1 tab PO Q12 [facility] Last Admin: 07/14/17 22:06 Dose: 1 tab - Labs Labs: 07/14/17 07:15 07/14/17 05:30 - Constitutional Appears: Well, Non-toxic, No Acute Distress - Head Exam Head Exam: ATRAUMATIC, NORMAL INSPECTION, NORMOCEPHALIC - Eye Exam Eye Exam: EOMI, Normal appearance, PERRL Pupil Exam: NORMAL ACCOMODATION, PERRL - ENT Exam ENT Exam: Mucous Membranes Moist, Normal Exam - Neck Exam Neck Exam: Full ROM, Normal Inspection. absent: Lymphadenopathy - Respiratory Exam Respiratory Exam: Clear to Ausculation Bilateral, NORMAL BREATHING PATTERN - Cardiovascular Exam Cardiovascular Exam: REGULAR RHYTHM, RRR, +S1, +S2. absent: Murmur - GI/Abdominal Exam GI & Abdominal Exam: Soft, Tenderness, Normal Bowel Sounds Additional comments: mild ruq tenderness - Extremities Exam Extremities Exam: Full ROM, Normal Capillary Refill, Normal Inspection. absent : Joint Swelling, Pedal Edema - Back Exam Back Exam: NORMAL INSPECTION - Neurological Exam Neurological Exam: Alert, Awake, CN II-XII Intact, Normal Gait, Oriented x3 - Psychiatric Exam Psychiatric exam: Normal Affect, Normal Mood - Skin Skin Exam: Dry, Intact, Normal Color, Warm Assessment and Plan (1) Biliary colic Status: Acute (2) DVT prophylaxis Status: Acute - Assessment and Plan (Free Text) Assessment: (1) Biliary colic/cholelithiasis/cholecystitis Assessment and Plan: w/ ruq pain elev lft, trend labs gi/surgery consult ivf, pain control zosyn after lengthy conversation pt does not wish to be off asa/plavix as she is scared of ahaving another stroke. will make npo lft incr, hold dc. pt now consenting to ercp. Status: Acute (2) DVT prophylaxis Assessment and Plan: scd and aehose ambulation hold anticoag until surgical option r/o Status: Acute [id number]
[2017-07-15] MEDS: Piperacillin/Tazobact 3.375 GM in Sodium Chloride 0.9% 100 ML IVPB SCH ×4 (04:35→21:49)
[2017-07-15] MEDS: Levothyroxine 125 MCG TAB PO SCH (06:27)
[2017-07-15 07:08] LABS: BASO % 0.4 % (0.0-2.0); EOS % 0.2 % (0.0-4.0); HEMATOCRIT 28.4 % (34.0-47.0); LYMPH # 1.1 K/uL (1.0-4.3); LYMPH % 16.4 % (20.0-40.0); MEAN CELL VOLUME 94.3 fl (81.0-99.0); MEAN CORPUSCULAR HEMOGLOBIN 30.8 pg (27.0-31.0); MEAN CORPUSCULAR HGB CONC 32.6 g/dL (33.0-37.0); MEAN PLATELET VOLUME 8.9 fl (7.2-11.7); MONO # 0.2 K/uL (0.0-0.8); MONO % 3.4 % (0.0-10.0); NEUT # 5.4 K/uL (1.8-7.0); NEUT % 79.6 % (50.0-75.0); NRBC % 0.1 % (0.0-0.0); RED CELL DISTRIBUTION WIDTH 14.9 % (11.5-14.5); WHITE BLOOD COUNT 6.8 K/uL (4.8-10.8)
[2017-07-15 07:16] LABS: ALKALINE PHOSPHATASE 435 U/L (38-126); ALT/SGPT 265 U/L (9-52); AST/SGOT 111 U/L (14-36); BILIRUBIN,TOTAL 1.3 mg/dl (0.2-1.3); BLOOD UREA NITROGEN 13 mg/dl (7-17); CALCIUM 8.1 mg/dL (8.4-10.2); CARBON DIOXIDE 24 mmol/L (22-30); CHLORIDE 104 mmol/L (98-107); GFR AFRICAN-AMERICAN > 60; GLUCOSE,RANDOM 87 mg/dL (65-105); POTASSIUM 3.8 MMOL/L (3.6-5.0); SODIUM 141 mmol/l (132-148); TOTAL PROTEIN 6.1 G/DL (6.3-8.2)
--- NOTE | 2017-07-15 08:59 | CP.PCM.PN ---
<Mee Sams - Last Filed: 07/15/17 09:00> Subjective - Date & Time of Evaluation Date of Evaluation: 07/15/17 Time of Evaluation: 06:40 - Subjective Subjective: Patient seen and examined this AM. KARMENEO. Patient denies any pain, states she is tolerating her diet well, denies nausea, vomiting, chest pain, or any other symptoms. States she had a bowel movement last night Objective - Vital Signs/Intake and Output Vital Signs (last 24 hours): Temp Pulse Resp BP Pulse Ox 97.6 F 72 20 107/61 94 L 07/15/17 08:39 07/15/17 08:39 07/15/17 08:39 07/15/17 08:39 07/15/17 08:39 - Medications Medications: Current Medications Aspirin (Aspirin Chewable) 81 mg PO DAILY [facility] Last Admin: 07/14/17 09:09 Dose: 81 mg Atorvastatin Calcium (Lipitor) 80 mg PO HS [facility] Last Admin: 07/14/17 22:06 Dose: 80 mg Clopidogrel Bisulfate (Plavix) 75 mg PO DAILY [facility] Last Admin: 07/14/17 09:09 Dose: 75 mg Cyclobenzaprine HCl (Flexeril) 5 mg PO TID PRN PRN Reason: Muscle spasm Famotidine (Pepcid) 20 mg PO Q12 [facility] Last Admin: 07/14/17 22:06 Dose: 20 mg Gabapentin (Neurontin) 300 mg PO BID [facility] Last Admin: 07/14/17 16:51 Dose: 300 mg Piperacillin Sod/Tazobactam (Sod 3.375 gm/ Sodium Chloride) 100 mls @ 100 mls/ hr IVPB Q6 [facility] Last Admin: 07/15/17 04:35 Dose: 100 mls/hr Ibuprofen (Motrin Tab) 600 mg PO Q8 PRN PRN Reason: Pain, moderate (4-7) Last Admin: 07/12/17 06:37 Dose: 600 mg Ketorolac Tromethamine (Toradol) 30 mg IVP Q6 PRN PRN Reason: Pain, moderate (4-7) Levothyroxine Sodium (Synthroid) 125 mcg PO DAILY@0630 [facility] Last Admin: 07/15/17 06:27 Dose: 125 mcg Morphine Sulfate (Morphine) 4 mg IVP Q4 PRN PRN Reason: Pain, severe (8-10) Last Admin: 07/14/17 00:36 Dose: 4 mg Ondansetron HCl (Zofran Inj) 4 mg IVP Q6 PRN PRN Reason: Nausea/Vomiting Last Admin: 07/14/17 00:45 Dose: 4 mg Sertraline HCl (Zoloft) 12.5 mg PO DAILY [facility] Last Admin: 07/14/17 09:11 Dose: 12.5 mg Tramadol HCl (Ultram) 50 mg PO Q6 [facility] Last Admin: 07/15/17 04:36 Dose: 50 mg Trimethoprim/Sulfamethoxazole (Bactrim Ds Tab) 1 tab PO Q12 [facility] Last Admin: 07/14/17 22:06 Dose: 1 tab - Labs Labs: 07/15/17 05:30 07/15/17 05:30 - Constitutional Appears: Non-toxic, No Acute Distress - Head Exam Head Exam: ATRAUMATIC, NORMOCEPHALIC - Eye Exam Eye Exam: Normal appearance. absent: Conjunctival injection, Scleral icterus - ENT Exam ENT Exam: Mucous Membranes Moist, Normal Oropharynx Additional comments: right sided mouth droop - Respiratory Exam Respiratory Exam: NORMAL BREATHING PATTERN. absent: Accessory Muscle Use, Respiratory Distress - Cardiovascular Exam Cardiovascular Exam: RRR - GI/Abdominal Exam GI & Abdominal Exam: Soft, Tenderness (mild tenderness in the RLQ and LLQ, no tenderness in the RUQ ). absent: Distended - Extremities Exam Extremities Exam: absent: Calf Tenderness, Pedal Edema, Tenderness - Neurological Exam Neurological Exam: Alert, Awake, Oriented x3 - Psychiatric Exam Psychiatric exam: Normal Affect, Normal Mood - Skin Skin Exam: Dry, Intact, Normal Color, Warm Assessment and Plan - Assessment and Plan (Free Text) Assessment: 66F with choledocholithiasis and biliary colic Plan: T bili and LFT's trending down once again but still above normal limits. Continue to trend Pain control Continue antibiotics Patient chooses to continue to taking plavix at this time due to her stroke history. Follow up her ERCP results this week No plan for surgical intervention at this time. Patient will have to be off plavix prior to surgery Will continue to follow Discussed with Dr. Cornelius Sams, PGY2 <Ricky Shields - Last Filed: 07/15/17 14:00> Subjective - Date & Time of Evaluation Date of Evaluation: 07/15/17 Time of Evaluation: 13:25 - Subjective Subjective: Patient was seen and examined at the bedside. Agree with resident's note above. Objective - Vital Signs/Intake and Output Vital Signs (last 24 hours): Temp Pulse Resp BP Pulse Ox 97.6 F 72 20 107/61 94 L 07/15/17 08:39 07/15/17 08:39 07/15/17 08:39 07/15/17 08:39 07/15/17 08:39 - Medications Medications: Current Medications Aspirin (Aspirin Chewable) 81 mg PO DAILY [facility] Last Admin: 07/15/17 09:46 Dose: 81 mg Atorvastatin Calcium (Lipitor) 80 mg PO HS [facility] Last Admin: 07/14/17 22:06 Dose: 80 mg Clopidogrel Bisulfate (Plavix) 75 mg PO DAILY [facility] Last Admin: 07/15/17 09:47 Dose: 75 mg Cyclobenzaprine HCl (Flexeril) 5 mg PO TID PRN PRN Reason: Muscle spasm Famotidine (Pepcid) 20 mg PO Q12 [facility] Last Admin: 07/15/17 09:47 Dose: 20 mg Gabapentin (Neurontin) 300 mg PO BID [facility] Last Admin: 07/15/17 09:47 Dose: 300 mg Piperacillin Sod/Tazobactam (Sod 3.375 gm/ Sodium Chloride) 100 mls @ 100 mls/ hr IVPB Q6 [facility] Last Admin: 07/15/17 09:50 Dose: 100 mls/hr Ibuprofen (Motrin Tab) 600 mg PO Q8 PRN PRN Reason: Pain, moderate (4-7) Last Admin: 07/12/17 06:37 Dose: 600 mg Ketorolac Tromethamine (Toradol) 30 mg IVP Q6 PRN PRN Reason: Pain, moderate (4-7) Levothyroxine Sodium (Synthroid) 125 mcg PO DAILY@0630 [facility] Last Admin: 07/15/17 06:27 Dose: 125 mcg Morphine Sulfate (Morphine) 4 mg IVP Q4 PRN PRN Reason: Pain, severe (8-10) Last Admin: 07/14/17 00:36 Dose: 4 mg Ondansetron HCl (Zofran Inj) 4 mg IVP Q6 PRN PRN Reason: Nausea/Vomiting Last Admin: 07/14/17 00:45 Dose: 4 mg Sertraline HCl (Zoloft) 12.5 mg PO DAILY [facility] Last Admin: 07/15/17 09:50 Dose: 12.5 mg Tramadol HCl (Ultram) 50 mg PO Q6 [facility] Last Admin: 07/15/17 09:54 Dose: 50 mg Trimethoprim/Sulfamethoxazole (Bactrim Ds Tab) 1 tab PO Q12 [facility] Last Admin: 07/15/17 09:46 Dose: 1 tab - Labs Labs: 07/15/17 05:30 07/15/17 05:30
[2017-07-15] MEDS: Tmp-Smz 800 mg-160 mg DS Tab PO SCH ×2 (09:46→21:52)
--- NOTE | 2017-07-15 18:40 | CP.PCM.PN ---
Subjective - Date & Time of Evaluation Date of Evaluation: 07/15/17 Time of Evaluation: 18:38 - Subjective Subjective: pt i ella free, t bili and lft trending down. surgeyr and gi nots appriciated no f/c, n/v/d Objective - Vital Signs/Intake and Output Vital Signs (last 24 hours): Temp Pulse Resp BP Pulse Ox 98.1 F 71 20 121/70 95 07/15/17 16:36 07/15/17 16:36 07/15/17 16:36 07/15/17 16:36 07/15/17 16:36 - Medications Medications: Current Medications Aspirin (Aspirin Chewable) 81 mg PO DAILY [facility] Last Admin: 07/15/17 09:46 Dose: 81 mg Atorvastatin Calcium (Lipitor) 80 mg PO HS [facility] Last Admin: 07/14/17 22:06 Dose: 80 mg Clopidogrel Bisulfate (Plavix) 75 mg PO DAILY [facility] Last Admin: 07/15/17 09:47 Dose: 75 mg Cyclobenzaprine HCl (Flexeril) 5 mg PO TID PRN PRN Reason: Muscle spasm Famotidine (Pepcid) 20 mg PO Q12 [facility] Last Admin: 07/15/17 09:47 Dose: 20 mg Gabapentin (Neurontin) 300 mg PO BID [facility] Last Admin: 07/15/17 17:09 Dose: 300 mg Piperacillin Sod/Tazobactam (Sod 3.375 gm/ Sodium Chloride) 100 mls @ 100 mls/ hr IVPB Q6 [facility] Last Admin: 07/15/17 17:15 Dose: 100 mls/hr Ibuprofen (Motrin Tab) 600 mg PO Q8 PRN PRN Reason: Pain, moderate (4-7) Last Admin: 07/12/17 06:37 Dose: 600 mg Ketorolac Tromethamine (Toradol) 30 mg IVP Q6 PRN PRN Reason: Pain, moderate (4-7) Levothyroxine Sodium (Synthroid) 125 mcg PO DAILY@0630 [facility] Last Admin: 07/15/17 06:27 Dose: 125 mcg Morphine Sulfate (Morphine) 4 mg IVP Q4 PRN PRN Reason: Pain, severe (8-10) Last Admin: 07/14/17 00:36 Dose: 4 mg Ondansetron HCl (Zofran Inj) 4 mg IVP Q6 PRN PRN Reason: Nausea/Vomiting Last Admin: 07/14/17 00:45 Dose: 4 mg Sertraline HCl (Zoloft) 12.5 mg PO DAILY [facility] Last Admin: 07/15/17 09:50 Dose: 12.5 mg Tramadol HCl (Ultram) 50 mg PO Q6 [facility] Last Admin: 07/15/17 17:11 Dose: 50 mg Trimethoprim/Sulfamethoxazole (Bactrim Ds Tab) 1 tab PO Q12 [facility] Last Admin: 07/15/17 09:46 Dose: 1 tab - Labs Labs: 07/15/17 05:30 07/15/17 05:30 - Constitutional Appears: Well, Non-toxic, No Acute Distress - Head Exam Head Exam: ATRAUMATIC, NORMAL INSPECTION, NORMOCEPHALIC - Eye Exam Eye Exam: EOMI, Normal appearance, PERRL Pupil Exam: NORMAL ACCOMODATION, PERRL - ENT Exam ENT Exam: Mucous Membranes Moist, Normal Exam - Neck Exam Neck Exam: Full ROM, Normal Inspection. absent: Lymphadenopathy - Respiratory Exam Respiratory Exam: Clear to Ausculation Bilateral, NORMAL BREATHING PATTERN - Cardiovascular Exam Cardiovascular Exam: REGULAR RHYTHM, RRR, +S1, +S2. absent: Murmur - GI/Abdominal Exam GI & Abdominal Exam: Soft, Normal Bowel Sounds. absent: Tenderness - Extremities Exam Extremities Exam: Full ROM, Normal Capillary Refill, Normal Inspection. absent : Joint Swelling, Pedal Edema - Back Exam Back Exam: NORMAL INSPECTION - Neurological Exam Neurological Exam: Abnormal Gait, Alert, Awake, CN II-XII Intact, Oriented x3 - Psychiatric Exam Psychiatric exam: Normal Affect, Normal Mood - Skin Skin Exam: Dry, Intact, Normal Color, Warm Assessment and Plan (1) Biliary colic Status: Acute (2) DVT prophylaxis Status: Acute - Assessment and Plan (Free Text) Assessment: (1) Biliary colic/cholelithiasis/cholecystitis Assessment and Plan: w/ ruq pain elev lft, trend labs gi/surgery consult ivf, pain control zosyn after lengthy conversation pt does not wish to be off asa/plavix as she is scared of ahaving another stroke. will make npo lft incr, hold dc. pt now consenting to ercp. Status: Acute (2) DVT prophylaxis Assessment and Plan: scd and aehose ambulation hold anticoag until surgical option r/o Status: Acute [id number]
[2017-07-16] MEDS: Piperacillin/Tazobact 3.375 GM in Sodium Chloride 0.9% 100 ML IVPB SCH ×4 (03:20→22:02)
[2017-07-16 06:20] LABS: BASO % 0.2 % (0.0-2.0); EOS % 0.2 % (0.0-4.0); HEMATOCRIT 28.9 % (34.0-47.0); LYMPH # 1.3 K/uL (1.0-4.3); LYMPH % 17.2 % (20.0-40.0); MEAN PLATELET VOLUME 9.1 fl (7.2-11.7); MONO # 0.4 K/uL (0.0-0.8); MONO % 5.6 % (0.0-10.0); NEUT # 5.6 K/uL (1.8-7.0); NEUT % 76.8 % (50.0-75.0); NRBC % 0.3 % (0.0-0.0); WHITE BLOOD COUNT 7.3 K/uL (4.8-10.8)
[2017-07-16] MEDS: Levothyroxine 125 MCG TAB PO SCH (06:23)
[2017-07-16 06:26] LABS: ALKALINE PHOSPHATASE 388 U/L (38-126); ALT/SGPT 190 U/L (9-52); AST/SGOT 57 U/L (14-36); BILIRUBIN,TOTAL 0.8 mg/dl (0.2-1.3); BLOOD UREA NITROGEN 14 mg/dl (7-17); CALCIUM 8.6 mg/dL (8.4-10.2); CARBON DIOXIDE 25 mmol/L (22-30); CHLORIDE 104 mmol/L (98-107); GFR AFRICAN-AMERICAN > 60; GLUCOSE,RANDOM 89 mg/dL (65-105); POTASSIUM 4.3 MMOL/L (3.6-5.0); SODIUM 141 mmol/l (132-148); TOTAL PROTEIN 6.3 G/DL (6.3-8.2)
--- NOTE | 2017-07-16 07:32 | CP.PCM.PN ---
<Natalya Swan-Hakeem - Last Filed: 07/16/17 07:33> Subjective - Date & Time of Evaluation Date of Evaluation: 07/16/17 Time of Evaluation: 07:31 - Subjective Subjective: Surgery Patient doing well today. Denies pain, n/v/f/c. Reports flatus. Objective - Vital Signs/Intake and Output Vital Signs (last 24 hours): Temp Pulse Resp BP Pulse Ox 97.9 F 83 20 123/74 97 07/16/17 01:20 07/16/17 01:20 07/16/17 01:20 07/16/17 01:20 07/16/17 01:20 - Medications Medications: Current Medications Aspirin (Aspirin Chewable) 81 mg PO DAILY [facility] Last Admin: 07/15/17 09:46 Dose: 81 mg Atorvastatin Calcium (Lipitor) 80 mg PO HS [facility] Last Admin: 07/15/17 21:52 Dose: 80 mg Clopidogrel Bisulfate (Plavix) 75 mg PO DAILY [facility] Last Admin: 07/15/17 09:47 Dose: 75 mg Cyclobenzaprine HCl (Flexeril) 5 mg PO TID PRN PRN Reason: Muscle spasm Famotidine (Pepcid) 20 mg PO Q12 [facility] Last Admin: 07/15/17 21:51 Dose: 20 mg Gabapentin (Neurontin) 300 mg PO BID [facility] Last Admin: 07/15/17 17:09 Dose: 300 mg Piperacillin Sod/Tazobactam (Sod 3.375 gm/ Sodium Chloride) 100 mls @ 100 mls/ hr IVPB Q6 [facility] Last Admin: 07/16/17 03:20 Dose: 100 mls/hr Ibuprofen (Motrin Tab) 600 mg PO Q8 PRN PRN Reason: Pain, moderate (4-7) Last Admin: 07/12/17 06:37 Dose: 600 mg Ketorolac Tromethamine (Toradol) 30 mg IVP Q6 PRN PRN Reason: Pain, moderate (4-7) Last Admin: 07/15/17 19:28 Dose: 30 mg Levothyroxine Sodium (Synthroid) 125 mcg PO DAILY@0630 [facility] Last Admin: 07/16/17 06:23 Dose: 125 mcg Morphine Sulfate (Morphine) 4 mg IVP Q4 PRN PRN Reason: Pain, severe (8-10) Last Admin: 07/15/17 20:31 Dose: 4 mg Ondansetron HCl (Zofran Inj) 4 mg IVP Q6 PRN PRN Reason: Nausea/Vomiting Last Admin: 07/14/17 00:45 Dose: 4 mg Sertraline HCl (Zoloft) 12.5 mg PO DAILY [facility] Last Admin: 07/15/17 09:50 Dose: 12.5 mg Tramadol HCl (Ultram) 50 mg PO Q6 [facility] Last Admin: 07/16/17 03:20 Dose: 50 mg Trimethoprim/Sulfamethoxazole (Bactrim Ds Tab) 1 tab PO Q12 [facility] Last Admin: 07/15/17 21:52 Dose: 1 tab - Labs Labs: 07/16/17 05:25 07/16/17 05:25 - Constitutional Appears: Non-toxic, No Acute Distress - Head Exam Head Exam: ATRAUMATIC, NORMOCEPHALIC - Eye Exam Eye Exam: EOMI, Normal appearance - ENT Exam ENT Exam: Mucous Membranes Moist - Respiratory Exam Respiratory Exam: NORMAL BREATHING PATTERN. absent: Respiratory Distress - Cardiovascular Exam Cardiovascular Exam: REGULAR RHYTHM. absent: Tachycardia - GI/Abdominal Exam GI & Abdominal Exam: Soft. absent: Distended, Guarding, Tenderness Assessment and Plan - Assessment and Plan (Free Text) Assessment: 66F with choledocholithiasis and biliary colic Plan: trend LFTs, improving possible ERCP? no surgical intervention 2/2 plavix further recs per attending AKWhite PGY3 <Ricky Shields - Last Filed: 07/16/17 11:45> Subjective - Date & Time of Evaluation Date of Evaluation: 07/16/17 Time of Evaluation: 09:20 - Subjective Subjective: Patient was seen and examined at the bedside. Agree with resident's note above. Objective - Vital Signs/Intake and Output Vital Signs (last 24 hours): Temp Pulse Resp BP Pulse Ox 97.6 F 70 17 124/73 94 L 07/16/17 08:08 07/16/17 08:08 07/16/17 08:08 07/16/17 08:08 07/16/17 08:08 - Medications Medications: Current Medications Aspirin (Aspirin Chewable) 81 mg PO DAILY [facility] Last Admin: 07/16/17 08:38 Dose: 81 mg Atorvastatin Calcium (Lipitor) 80 mg PO HS [facility] Last Admin: 07/15/17 21:52 Dose: 80 mg Clopidogrel Bisulfate (Plavix) 75 mg PO DAILY [facility] Last Admin: 07/15/17 09:47 Dose: 75 mg Cyclobenzaprine HCl (Flexeril) 5 mg PO TID PRN PRN Reason: Muscle spasm Last Admin: 07/16/17 08:39 Dose: 5 mg Famotidine (Pepcid) 20 mg PO Q12 [facility] Last Admin: 07/16/17 08:39 Dose: 20 mg Gabapentin (Neurontin) 300 mg PO BID [facility] Last Admin: 07/16/17 08:39 Dose: 300 mg Piperacillin Sod/Tazobactam (Sod 3.375 gm/ Sodium Chloride) 100 mls @ 100 mls/ hr IVPB Q6 [facility] Last Admin: 07/16/17 09:04 Dose: 100 mls/hr Ibuprofen (Motrin Tab) 600 mg PO Q8 PRN PRN Reason: Pain, moderate (4-7) Last Admin: 07/12/17 06:37 Dose: 600 mg Ketorolac Tromethamine (Toradol) 30 mg IVP Q6 PRN PRN Reason: Pain, moderate (4-7) Last Admin: 07/15/17 19:28 Dose: 30 mg Levothyroxine Sodium (Synthroid) 125 mcg PO DAILY@0630 [facility] Last Admin: 07/16/17 06:23 Dose: 125 mcg Morphine Sulfate (Morphine) 4 mg IVP Q4 PRN PRN Reason: Pain, severe (8-10) Last Admin: 07/15/17 20:31 Dose: 4 mg Ondansetron HCl (Zofran Inj) 4 mg IVP Q6 PRN PRN Reason: Nausea/Vomiting Last Admin: 07/14/17 00:45 Dose: 4 mg Sertraline HCl (Zoloft) 12.5 mg PO DAILY [facility] Last Admin: 07/16/17 08:40 Dose: 12.5 mg Tramadol HCl (Ultram) 50 mg PO Q6 [facility] Last Admin: 07/16/17 09:05 Dose: 50 mg Trimethoprim/Sulfamethoxazole (Bactrim Ds Tab) 1 tab PO Q12 [facility] Last Admin: 07/16/17 08:38 Dose: 1 tab - Labs Labs: 07/16/17 05:25 07/16/17 05:25
--- NOTE | 2017-07-16 07:32 | CP.PCM.PN ---
Subjective - Date & Time of Evaluation Date of Evaluation: 07/16/17 Time of Evaluation: 07:31 - Subjective Subjective: doing well, no complaints. no f/c, n/v/d. bw noted for possible ercp vs dc to stop plavix and return for outpt lap akin Objective - Vital Signs/Intake and Output Vital Signs (last 24 hours): Temp Pulse Resp BP Pulse Ox 97.9 F 83 20 123/74 97 07/16/17 01:20 07/16/17 01:20 07/16/17 01:20 07/16/17 01:20 07/16/17 01:20 - Medications Medications: Current Medications Aspirin (Aspirin Chewable) 81 mg PO DAILY [facility] Last Admin: 07/15/17 09:46 Dose: 81 mg Atorvastatin Calcium (Lipitor) 80 mg PO HS [facility] Last Admin: 07/15/17 21:52 Dose: 80 mg Clopidogrel Bisulfate (Plavix) 75 mg PO DAILY [facility] Last Admin: 07/15/17 09:47 Dose: 75 mg Cyclobenzaprine HCl (Flexeril) 5 mg PO TID PRN PRN Reason: Muscle spasm Famotidine (Pepcid) 20 mg PO Q12 [facility] Last Admin: 07/15/17 21:51 Dose: 20 mg Gabapentin (Neurontin) 300 mg PO BID [facility] Last Admin: 07/15/17 17:09 Dose: 300 mg Piperacillin Sod/Tazobactam (Sod 3.375 gm/ Sodium Chloride) 100 mls @ 100 mls/ hr IVPB Q6 [facility] Last Admin: 07/16/17 03:20 Dose: 100 mls/hr Ibuprofen (Motrin Tab) 600 mg PO Q8 PRN PRN Reason: Pain, moderate (4-7) Last Admin: 07/12/17 06:37 Dose: 600 mg Ketorolac Tromethamine (Toradol) 30 mg IVP Q6 PRN PRN Reason: Pain, moderate (4-7) Last Admin: 07/15/17 19:28 Dose: 30 mg Levothyroxine Sodium (Synthroid) 125 mcg PO DAILY@0630 [facility] Last Admin: 07/16/17 06:23 Dose: 125 mcg Morphine Sulfate (Morphine) 4 mg IVP Q4 PRN PRN Reason: Pain, severe (8-10) Last Admin: 07/15/17 20:31 Dose: 4 mg Ondansetron HCl (Zofran Inj) 4 mg IVP Q6 PRN PRN Reason: Nausea/Vomiting Last Admin: 07/14/17 00:45 Dose: 4 mg Sertraline HCl (Zoloft) 12.5 mg PO DAILY [facility] Last Admin: 07/15/17 09:50 Dose: 12.5 mg Tramadol HCl (Ultram) 50 mg PO Q6 [facility] Last Admin: 07/16/17 03:20 Dose: 50 mg Trimethoprim/Sulfamethoxazole (Bactrim Ds Tab) 1 tab PO Q12 [facility] Last Admin: 07/15/17 21:52 Dose: 1 tab - Labs Labs: 07/16/17 05:25 07/16/17 05:25 - Constitutional Appears: Well, Non-toxic, No Acute Distress - Head Exam Head Exam: ATRAUMATIC, NORMAL INSPECTION, NORMOCEPHALIC - Eye Exam Eye Exam: EOMI, Normal appearance, PERRL Pupil Exam: NORMAL ACCOMODATION, PERRL - ENT Exam ENT Exam: Mucous Membranes Moist, Normal Exam - Neck Exam Neck Exam: Full ROM, Normal Inspection. absent: Lymphadenopathy - Respiratory Exam Respiratory Exam: Clear to Ausculation Bilateral, NORMAL BREATHING PATTERN - Cardiovascular Exam Cardiovascular Exam: REGULAR RHYTHM, RRR, +S1, +S2. absent: Murmur - GI/Abdominal Exam GI & Abdominal Exam: Soft, Normal Bowel Sounds. absent: Tenderness - Extremities Exam Extremities Exam: Full ROM, Normal Capillary Refill, Normal Inspection. absent : Joint Swelling, Pedal Edema - Back Exam Back Exam: NORMAL INSPECTION - Neurological Exam Neurological Exam: Alert, Awake, CN II-XII Intact, Normal Gait, Oriented x3 - Psychiatric Exam Psychiatric exam: Normal Affect, Normal Mood - Skin Skin Exam: Dry, Intact, Normal Color, Warm Assessment and Plan (1) Biliary colic Status: Acute (2) DVT prophylaxis Status: Acute - Assessment and Plan (Free Text) Assessment: (1) Biliary colic/cholelithiasis/cholecystitis Assessment and Plan: w/ ruq pain-pain free this am elev lft, trend labs gi/surgery consult ivf, pain control zosyn after lengthy conversation pt does not wish to be off asa/plavix as she is scared of ahaving another stroke. neuro will eval pt today lft incr, hold dc. pt now consenting to ercp. lft now starting to trend down. case d/c w/ gi Status: Acute (2) DVT prophylaxis Assessment and Plan: scd and aehose ambulation hold anticoag until surgical option r/o Status: Acute [id number]
[2017-07-16] MEDS: Tmp-Smz 800 mg-160 mg DS Tab PO SCH ×2 (08:38→21:59)
--- NOTE | 2017-07-16 18:33 | CON ---
NEUROLOGY CONSULTATION DATE: 07/16/2017 CHIEF COMPLAINT: Neuro clearance to be off Plavix for cholecystectomy. 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 GI has evaluated and recommended that her abdominal pain was secondary to her biliary colic and recommended cholecystectomy, but needed to be off Plavix for a certain amount of days. Currently, she still has spastic residual left-sided weakness and dysarthria, and is undergoing physical therapy. No new stroke like symptoms. PAST MEDICAL HISTORY: Right MCA territory infarct with residual spastic left hemiparesis, hypertension, depression, hypothyroidism. REVIEW OF SYSTEMS: A 14-point review of systems is negative except as in the HPI. ALLERGIES: NO KNOWN DRUG ALLERGIES. MEDICATIONS: Reviewed by nurse per reconciliation sheet. PHYSICAL EXAMINATION: GENERAL: The patient is sitting up in bed, in no acute distress. VITAL SIGNS: Temperature 97.6, pulse rate 70, blood pressure 124/73, respiratory rate of 17. HEENT: Head is atraumatic and normocephalic. PERRLA. Extraocular muscles are intact. NECK: Supple. No JVD. No adenopathy noted. LUNGS: Clear to auscultation. No adventitious sounds. HEART: S1 and S2. Normal rate and rhythm. No murmurs, rubs, or gallops. ABDOMEN: Soft, nontender, and nondistended. Bowel sounds are present. EXTREMITIES: No clubbing. No cyanosis. Peripheral pulses 2+ bilaterally. NEUROLOGIC: The patient is alert and oriented to person, place, month, and year. Speech is fluent without any errors. Motor exam: Has spastic left hemiparesis, residual right MCA territory infarct. Sensory exam: Decreased light touch and pinprick at the calves bilaterally. Decreased vibration at the toes. DTRs are 2+ throughout, 1 at the ankles. Coordination: [id number] intact, but difficult with the left side due to residual left sided spastic hemiparesis. LABORATORY DATA: Sodium is 141, potassium 4.3 , chloride of 104, carbon dioxide 25, BUN of 14, creatinine 1, and random glucose 89. ASSESSMENT AND PLAN: This is a 66-year-old woman with history of large right middle cerebral artery territory infarct with residual left spastic hemiparesis, anxiety, depression, hypothyroidism, hypertension, hyperlipidemia, who comes in for biliary colic and needs clearance for cholecystectomy and needs to be off of Plavix. At this time, her right middle cerebral artery territory infarct with residual left spastic hemiparesis is secondary to diffuse atherosclerotic disease and therefore, she is on aspirin and Plavix and statin. I recommend that she can hold the Plavix for at least 4-5 days, no longer than that in order to do a cholecystectomy and she can just be on a baby aspirin for that during that period. At this time, continue with physical therapy and GI followup in regard to her biliary colic and continue current present medical management. Thank you for this consult. Man Gastelum MD
[2017-07-17] MEDS: Piperacillin/Tazobact 3.375 GM in Sodium Chloride 0.9% 100 ML IVPB SCH ×3 (04:30→15:58)
[2017-07-17 06:36] LABS: BASO % 0.3 % (0.0-2.0); EOS % 0.1 % (0.0-4.0); HEMATOCRIT 29.4 % (34.0-47.0); LYMPH # 1.4 K/uL (1.0-4.3); LYMPH % 18.1 % (20.0-40.0); MEAN CELL VOLUME 93.4 fl (81.0-99.0); MEAN CORPUSCULAR HEMOGLOBIN 30.9 pg (27.0-31.0); MEAN PLATELET VOLUME 9.3 fl (7.2-11.7); MONO # 0.5 K/uL (0.0-0.8); MONO % 5.9 % (0.0-10.0); NEUT % 75.6 % (50.0-75.0); NRBC % 0.1 % (0.0-0.0); RED CELL DISTRIBUTION WIDTH 15.1 % (11.5-14.5)
[2017-07-17 06:45] LABS: ALKALINE PHOSPHATASE 363 U/L (38-126); ALT/SGPT 136 U/L (9-52); AST/SGOT 36 U/L (14-36); BILIRUBIN,TOTAL 0.8 mg/dl (0.2-1.3); BLOOD UREA NITROGEN 11 mg/dl (7-17); CALCIUM 8.6 mg/dL (8.4-10.2); CARBON DIOXIDE 25 mmol/L (22-30); CHLORIDE 104 mmol/L (98-107); GFR AFRICAN-AMERICAN > 60; GLUCOSE,RANDOM 94 mg/dL (65-105); POTASSIUM 4.2 MMOL/L (3.6-5.0); SODIUM 138 mmol/l (132-148); TOTAL PROTEIN 6.4 G/DL (6.3-8.2)
[2017-07-17] MEDS: Levothyroxine 125 MCG TAB PO SCH (06:59)
--- NOTE | 2017-07-17 07:15 | CP.PCM.PN ---
Subjective - Date & Time of Evaluation Date of Evaluation: 07/17/17 Time of Evaluation: 07:14 - Subjective Subjective: no distress/complaints. no f/c, n/v/d. no pain at present. plavix stopped yesterday after approval from pt and dr hill-neuro eep sun, \lap akin sun, restart plavix 24h after surgery Objective - Vital Signs/Intake and Output Vital Signs (last 24 hours): Temp Pulse Resp BP Pulse Ox 98.1 F 72 19 102/68 94 L 07/17/17 00:29 07/17/17 00:29 07/17/17 00:29 07/17/17 00:29 07/17/17 00:29 - Medications Medications: Current Medications Aspirin (Aspirin Chewable) 81 mg PO DAILY [facility] Last Admin: 07/16/17 08:38 Dose: 81 mg Atorvastatin Calcium (Lipitor) 80 mg PO HS [facility] Last Admin: 07/16/17 21:59 Dose: 80 mg Clopidogrel Bisulfate (Plavix) 75 mg PO DAILY [facility] Last Admin: 07/16/17 16:15 Dose: Not Given Cyclobenzaprine HCl (Flexeril) 5 mg PO TID PRN PRN Reason: Muscle spasm Last Admin: 07/16/17 08:39 Dose: 5 mg Famotidine (Pepcid) 20 mg PO Q12 [facility] Last Admin: 07/16/17 21:59 Dose: 20 mg Gabapentin (Neurontin) 300 mg PO BID [facility] Last Admin: 07/16/17 16:15 Dose: 300 mg Piperacillin Sod/Tazobactam (Sod 3.375 gm/ Sodium Chloride) 100 mls @ 100 mls/ hr IVPB Q6 [facility] Last Admin: 07/17/17 04:30 Dose: 100 mls/hr Ibuprofen (Motrin Tab) 600 mg PO Q8 PRN PRN Reason: Pain, moderate (4-7) Last Admin: 07/12/17 06:37 Dose: 600 mg Ketorolac Tromethamine (Toradol) 30 mg IVP Q6 PRN PRN Reason: Pain, moderate (4-7) Last Admin: 07/15/17 19:28 Dose: 30 mg Levothyroxine Sodium (Synthroid) 125 mcg PO DAILY@0630 [facility] Last Admin: 07/17/17 06:59 Dose: 125 mcg Morphine Sulfate (Morphine) 4 mg IVP Q4 PRN PRN Reason: Pain, severe (8-10) Last Admin: 07/15/17 20:31 Dose: 4 mg Ondansetron HCl (Zofran Inj) 4 mg IVP Q6 PRN PRN Reason: Nausea/Vomiting Last Admin: 07/14/17 00:45 Dose: 4 mg Sertraline HCl (Zoloft) 12.5 mg PO DAILY [facility] Last Admin: 07/16/17 08:40 Dose: 12.5 mg Tramadol HCl (Ultram) 50 mg PO Q6 [facility] Last Admin: 07/17/17 04:35 Dose: Not Given Trimethoprim/Sulfamethoxazole (Bactrim Ds Tab) 1 tab PO Q12 [facility] Last Admin: 07/16/17 21:59 Dose: 1 tab - Labs Labs: 07/16/17 05:25 07/17/17 05:25 - Constitutional Appears: Well, Non-toxic, No Acute Distress - Head Exam Head Exam: ATRAUMATIC, NORMAL INSPECTION, NORMOCEPHALIC - Eye Exam Eye Exam: EOMI, Normal appearance, PERRL Pupil Exam: NORMAL ACCOMODATION, PERRL - ENT Exam ENT Exam: Mucous Membranes Moist, Normal Exam - Neck Exam Neck Exam: Full ROM, Normal Inspection. absent: Lymphadenopathy - Respiratory Exam Respiratory Exam: Clear to Ausculation Bilateral, NORMAL BREATHING PATTERN - Cardiovascular Exam Cardiovascular Exam: REGULAR RHYTHM, RRR, +S1, +S2. absent: Murmur - GI/Abdominal Exam GI & Abdominal Exam: Soft, Normal Bowel Sounds. absent: Tenderness - Extremities Exam Extremities Exam: Full ROM, Normal Capillary Refill, Normal Inspection. absent : Joint Swelling, Pedal Edema - Back Exam Back Exam: Full ROM, NORMAL INSPECTION - Neurological Exam Neurological Exam: Abnormal Gait, Alert, Awake, CN II-XII Intact, Oriented x3 Neuro motor strength exam: Left Upper Extremity: 0, Right Upper Extremity: 5, Left Lower Extremity: 0, Right Lower Extremity: 5 Additional comments: h/o left hemiparesis r/t cva - Psychiatric Exam Psychiatric exam: Normal Affect, Normal Mood - Skin Skin Exam: Dry, Intact, Normal Color, Warm Assessment and Plan (1) Biliary colic Assessment & Plan: pain control getting better Status: Acute (2) DVT prophylaxis Assessment & Plan: scd and ae hose rom exercises asa to continue while plavix dc Status: Acute (3) H/O: CVA (cerebrovascular accident) Assessment & Plan: cont asa, no plavix x 5 days as cleared by dr silva. pt agreeable rom exercises Status: Acute (4) UTI (urinary tract infection) Assessment & Plan: bactrim repeat ua, c/s Status: Acute (5) Choledocholithiasis with acute cholecystitis Status: Acute
[2017-07-17 08:26] VITALS: TEMP 97.7
--- NOTE | 2017-07-17 08:59 | CP.PCM.PN ---
<Marcos Swan - Last Filed: 07/17/17 08:51> Subjective - Date & Time of Evaluation Date of Evaluation: 07/17/17 Time of Evaluation: 08:51 - Subjective Subjective: Surgery Patient feeling well today. NO complaints. Per primary, plavix held yesterday after approval from neuro. Patient for ERCP Sunday. No acute events overnight. Objective - Vital Signs/Intake and Output Vital Signs (last 24 hours): Temp Pulse Resp BP Pulse Ox 97.7 F 70 17 109/66 94 L 07/17/17 08:25 07/17/17 08:25 07/17/17 08:25 07/17/17 08:25 07/17/17 08:25 - Medications Medications: Current Medications Aspirin (Aspirin Chewable) 81 mg PO DAILY [facility] Last Admin: 07/16/17 08:38 Dose: 81 mg Atorvastatin Calcium (Lipitor) 80 mg PO HS [facility] Last Admin: 07/16/17 21:59 Dose: 80 mg Clopidogrel Bisulfate (Plavix) 75 mg PO DAILY [facility] Last Admin: 07/16/17 16:15 Dose: Not Given Cyclobenzaprine HCl (Flexeril) 5 mg PO TID PRN PRN Reason: Muscle spasm Last Admin: 07/16/17 08:39 Dose: 5 mg Famotidine (Pepcid) 20 mg PO Q12 [facility] Last Admin: 07/16/17 21:59 Dose: 20 mg Gabapentin (Neurontin) 300 mg PO BID [facility] Last Admin: 07/16/17 16:15 Dose: 300 mg Piperacillin Sod/Tazobactam (Sod 3.375 gm/ Sodium Chloride) 100 mls @ 100 mls/ hr IVPB Q6 [facility] Last Admin: 07/17/17 04:30 Dose: 100 mls/hr Ibuprofen (Motrin Tab) 600 mg PO Q8 PRN PRN Reason: Pain, moderate (4-7) Last Admin: 07/12/17 06:37 Dose: 600 mg Ketorolac Tromethamine (Toradol) 30 mg IVP Q6 PRN PRN Reason: Pain, moderate (4-7) Last Admin: 07/15/17 19:28 Dose: 30 mg Levothyroxine Sodium (Synthroid) 125 mcg PO DAILY@0630 [facility] Last Admin: 07/17/17 06:59 Dose: 125 mcg Morphine Sulfate (Morphine) 4 mg IVP Q4 PRN PRN Reason: Pain, severe (8-10) Last Admin: 07/15/17 20:31 Dose: 4 mg Ondansetron HCl (Zofran Inj) 4 mg IVP Q6 PRN PRN Reason: Nausea/Vomiting Last Admin: 07/14/17 00:45 Dose: 4 mg Sertraline HCl (Zoloft) 12.5 mg PO DAILY [facility] Last Admin: 07/16/17 08:40 Dose: 12.5 mg Tramadol HCl (Ultram) 50 mg PO Q6 [facility] Last Admin: 07/17/17 04:35 Dose: Not Given Trimethoprim/Sulfamethoxazole (Bactrim Ds Tab) 1 tab PO Q12 [facility] Last Admin: 07/16/17 21:59 Dose: 1 tab - Labs Labs: 07/17/17 05:25 07/17/17 05:25 - Constitutional Appears: Non-toxic, No Acute Distress - Head Exam Head Exam: ATRAUMATIC, NORMOCEPHALIC - Eye Exam Eye Exam: EOMI, Normal appearance - ENT Exam ENT Exam: Mucous Membranes Moist - Respiratory Exam Respiratory Exam: absent: Respiratory Distress - Cardiovascular Exam Cardiovascular Exam: REGULAR RHYTHM. absent: Tachycardia - GI/Abdominal Exam GI & Abdominal Exam: Soft. absent: Distended, Guarding, Rigid, Tenderness, Rebound - Extremities Exam Extremities Exam: absent: Calf Tenderness - Neurological Exam Neurological Exam: Alert, Awake - Psychiatric Exam Psychiatric exam: Normal Affect, Normal Mood - Skin Skin Exam: Dry Assessment and Plan - Assessment and Plan (Free Text) Assessment: 66 y/o female w/ choledocholithiasis, transaminitis improving Plan: -plavix held Sunday -ERCP this week -daily labs -OR TBD -further recs per attending AKWhite PGY3 <Koby Tsai - Last Filed: 07/17/17 14:04> Objective - Vital Signs/Intake and Output Vital Signs (last 24 hours): Temp Pulse Resp BP Pulse Ox 97.7 F 70 17 109/66 94 L 07/17/17 08:25 07/17/17 08:25 07/17/17 08:25 07/17/17 08:25 07/17/17 08:25 - Medications Medications: Current Medications Aspirin (Aspirin Chewable) 81 mg PO DAILY [facility] Last Admin: 07/17/17 09:52 Dose: 81 mg Atorvastatin Calcium (Lipitor) 80 mg PO HS [facility] Last Admin: 07/16/17 21:59 Dose: 80 mg Clopidogrel Bisulfate (Plavix) 75 mg PO DAILY [facility] Last Admin: 07/16/17 16:15 Dose: Not Given Cyclobenzaprine HCl (Flexeril) 5 mg PO TID PRN PRN Reason: Muscle spasm Last Admin: 07/16/17 08:39 Dose: 5 mg Famotidine (Pepcid) 20 mg PO Q12 [facility] Last Admin: 07/17/17 09:54 Dose: 20 mg Gabapentin (Neurontin) 300 mg PO BID [facility] Last Admin: 07/17/17 09:54 Dose: 300 mg Piperacillin Sod/Tazobactam (Sod 3.375 gm/ Sodium Chloride) 100 mls @ 100 mls/ hr IVPB Q6 [facility] Last Admin: 07/17/17 09:50 Dose: 100 mls/hr Ibuprofen (Motrin Tab) 600 mg PO Q8 PRN PRN Reason: Pain, moderate (4-7) Last Admin: 07/12/17 06:37 Dose: 600 mg Ketorolac Tromethamine (Toradol) 30 mg IVP Q6 PRN PRN Reason: Pain, moderate (4-7) Last Admin: 07/15/17 19:28 Dose: 30 mg Levothyroxine Sodium (Synthroid) 125 mcg PO DAILY@0630 [facility] Last Admin: 07/17/17 06:59 Dose: 125 mcg Morphine Sulfate (Morphine) 4 mg IVP Q4 PRN PRN Reason: Pain, severe (8-10) Last Admin: 07/15/17 20:31 Dose: 4 mg Ondansetron HCl (Zofran Inj) 4 mg IVP Q6 PRN PRN Reason: Nausea/Vomiting Last Admin: 07/14/17 00:45 Dose: 4 mg Sertraline HCl (Zoloft) 12.5 mg PO DAILY [facility] Last Admin: 07/17/17 09:53 Dose: 12.5 mg Tramadol HCl (Ultram) 50 mg PO Q6 [facility] Last Admin: 07/17/17 09:59 Dose: 50 mg Trimethoprim/Sulfamethoxazole (Bactrim Ds Tab) 1 tab PO Q12 [facility] Last Admin: 07/17/17 09:53 Dose: 1 tab - Labs Labs: 07/17/17 05:25 07/17/17 05:25 Assessment and Plan - Assessment and Plan (Free Text) Plan: no ERCP today, will schedule lap akin with cholangiogram
[2017-07-17] MEDS: Tmp-Smz 800 mg-160 mg DS Tab PO SCH (09:53)
--- NOTE | 2017-07-17 15:59 | CP.PCM.PN ---
Subjective - Date & Time of Evaluation Date of Evaluation: 07/16/17 Time of Evaluation: 15:15 - Subjective Subjective: no pain Objective - Vital Signs/Intake and Output Vital Signs (last 24 hours): Temp Pulse Resp BP Pulse Ox 97.7 F 70 17 109/66 94 L 07/17/17 08:25 07/17/17 08:25 07/17/17 08:25 07/17/17 08:25 07/17/17 08:25 - Medications Medications: Current Medications Aspirin (Aspirin Chewable) 81 mg PO DAILY [facility] Last Admin: 07/17/17 09:52 Dose: 81 mg Atorvastatin Calcium (Lipitor) 80 mg PO HS [facility] Last Admin: 07/16/17 21:59 Dose: 80 mg Clopidogrel Bisulfate (Plavix) 75 mg PO DAILY [facility] Last Admin: 07/16/17 16:15 Dose: Not Given Cyclobenzaprine HCl (Flexeril) 5 mg PO TID PRN PRN Reason: Muscle spasm Last Admin: 07/16/17 08:39 Dose: 5 mg Famotidine (Pepcid) 20 mg PO Q12 [facility] Last Admin: 07/17/17 09:54 Dose: 20 mg Gabapentin (Neurontin) 300 mg PO BID [facility] Last Admin: 07/17/17 09:54 Dose: 300 mg Piperacillin Sod/Tazobactam (Sod 3.375 gm/ Sodium Chloride) 100 mls @ 100 mls/ hr IVPB Q6 [facility] Last Admin: 07/17/17 09:50 Dose: 100 mls/hr Ibuprofen (Motrin Tab) 600 mg PO Q8 PRN PRN Reason: Pain, moderate (4-7) Last Admin: 07/12/17 06:37 Dose: 600 mg Ketorolac Tromethamine (Toradol) 30 mg IVP Q6 PRN PRN Reason: Pain, moderate (4-7) Last Admin: 07/15/17 19:28 Dose: 30 mg Levothyroxine Sodium (Synthroid) 125 mcg PO DAILY@0630 [facility] Last Admin: 07/17/17 06:59 Dose: 125 mcg Morphine Sulfate (Morphine) 4 mg IVP Q4 PRN PRN Reason: Pain, severe (8-10) Last Admin: 07/15/17 20:31 Dose: 4 mg Ondansetron HCl (Zofran Inj) 4 mg IVP Q6 PRN PRN Reason: Nausea/Vomiting Last Admin: 07/14/17 00:45 Dose: 4 mg Sertraline HCl (Zoloft) 12.5 mg PO DAILY [facility] Last Admin: 07/17/17 09:53 Dose: 12.5 mg Tramadol HCl (Ultram) 50 mg PO Q6 [facility] Last Admin: 07/17/17 09:59 Dose: 50 mg Trimethoprim/Sulfamethoxazole (Bactrim Ds Tab) 1 tab PO Q12 [facility] Last Admin: 07/17/17 09:53 Dose: 1 tab - Labs Labs: 07/17/17 05:25 07/17/17 05:25 - Respiratory Exam Respiratory Exam: NORMAL BREATHING PATTERN - Cardiovascular Exam Cardiovascular Exam: REGULAR RHYTHM - GI/Abdominal Exam GI & Abdominal Exam: Soft, Normal Bowel Sounds Assessment and Plan - Assessment and Plan (Free Text) Assessment: 66 yo female with biliary colic bili normal, lft improving, no pain likely passed stone consider lap akin with IOC if ok with surgery
[2017-07-17 17:01] VITALS: BP 116/74; PULSE 76; RESP 20; O2SAT 95
--- NOTE | 2017-07-17 17:51 | CP.PCM.DIS ---
Provider - Provider Date of Admission: 07/11/17 14:55 Attending physician: Benny Martinez MD Time Spent in preparation of Discharge (in minutes): 15 Diagnosis - Discharge Diagnosis (1) Biliary colic Status: Acute (2) DVT prophylaxis Status: Acute (3) H/O: CVA (cerebrovascular accident) Status: Acute (4) UTI (urinary tract infection) Status: Acute (5) Choledocholithiasis with acute cholecystitis Status: Acute Hospital Course - Lab Results Lab Results: Micro Results 07/11/17 01:20 Blood Blood Culture - Final NO GROWTH AFTER 5 DAYS 07/11/17 01:20 Blood Gram Stain - Final TEST NOT PERFORMED 07/11/17 14:46 Urine,Catheterized Urine Culture - Final Escherichia Coli Most Recent Lab Values WBC 8.0 K/uL (4.8-10.8) 07/17/17 05:25 RBC 3.15 Mil/uL (3.80-5.20) L 07/17/17 05:25 Hgb 9.7 g/dL (12.0-16.0) L 07/17/17 05:25 Hct 29.4 % (34.0-47.0) L 07/17/17 05:25 MCV 93.4 fl (81.0-99.0) 07/17/17 05:25 MCH 30.9 pg (27.0-31.0) 07/17/17 05:25 MCHC 33.0 g/dL (33.0-37.0) 07/17/17 05:25 RDW 15.1 % (11.5-14.5) H 07/17/17 05:25 Plt Count 170 K/uL (130-400) 07/17/17 05:25 MPV 9.3 fl (7.2-11.7) 07/17/17 05:25 Neut % (Auto) 75.6 % (50.0-75.0) H 07/17/17 05:25 Lymph % (Auto) 18.1 % (20.0-40.0) L 07/17/17 05:25 [place] % (Auto) 5.9 % (0.0-10.0) 07/17/17 05:25 Eos % (Auto) 0.1 % (0.0-4.0) 07/17/17 05:25 Baso % (Auto) 0.3 % (0.0-2.0) 07/17/17 05:25 Neut # 6.0 K/uL (1.8-7.0) 07/17/17 05:25 Lymph # 1.4 K/uL (1.0-4.3) 07/17/17 05:25 [place] # 0.5 K/uL (0.0-0.8) 07/17/17 05:25 Eos # 0.0 K/uL (0.0-0.7) 07/17/17 05:25 Baso # 0.0 K/uL (0.0-0.2) 07/17/17 05:25 Neutrophils % (Manual) 84 % (42-75) H 07/14/17 07:15 Band Neutrophils % 3 % (0-2) H 07/14/17 07:15 Lymphocytes % (Manual) 9 % (20-50) L 07/14/17 07:15 Monocytes % (Manual) 3 % (0-10) 07/14/17 07:15 Basophils % (Manual) 1 % (0-2) 07/14/17 07:15 Platelet Estimate Normal (NORMAL) 07/14/17 07:15 Large Platelets Present 07/14/17 07:15 Poikilocytosis (manual Slight 07/14/17 07:15 Anisocytosis (manual) Slight 07/14/17 07:15 Ovalocytes Slight 07/14/17 07:15 Sodium 138 mmol/l (132-148) 07/17/17 05:25 Potassium 4.2 MMOL/L (3.6-5.0) 07/17/17 05:25 Chloride 104 mmol/L (98-107) 07/17/17 05:25 Carbon Dioxide 25 mmol/L (22-30) 07/17/17 05:25 Anion Gap 13 (10-20) 07/17/17 05:25 BUN 11 mg/dl (7-17) 07/17/17 05:25 Creatinine 0.8 mg/dL (0.7-1.2) 07/17/17 05:25 Est GFR ( Amer) > 60 07/17/17 05:25 Est GFR (Non-Af Amer) > 60 07/17/17 05:25 Random Glucose 94 mg/dL (65-105) 07/17/17 05:25 Lactic Acid 1.2 MMOL/L (0.7-2.1) 07/11/17 01:20 Calcium 8.6 mg/dL (8.4-10.2) 07/17/17 05:25 Total Bilirubin 0.8 mg/dl (0.2-1.3) 07/17/17 05:25 AST 36 U/L (14-36) D 07/17/17 05:25 ALT 136 U/L (9-52) H D 07/17/17 05:25 Alkaline Phosphatase 363 U/L (38-126) H 07/17/17 05:25 Total Protein 6.4 G/DL (6.3-8.2) 07/17/17 05:25 Albumin 3.2 g/dL (3.5-5.0) L 07/17/17 05:25 Globulin 3.2 gm/dL (2.2-3.9) 07/17/17 05:25 Albumin/Globulin Ratio 1.0 (1.0-2.1) 07/17/17 05:25 Lipase 98 U/L (23-300) 07/10/17 22:50 Urine Color Marta (YELLOW) 07/10/17 14:46 Urine Clarity Cloudy (Clear) 07/10/17 14:46 Urine pH 5.0 (5.0-8.0) 07/10/17 14:46 Ur Specific Casey 1.042 (1.003-1.030) H 07/10/17 14:46 Urine Protein 30 mg/dL (NEGATIVE) 07/10/17 14:46 Urine Glucose (UA) Neg mg/dL (Normal) 07/10/17 14:46 Urine Ketones Negative mg/dL (NEGATIVE) 07/10/17 14:46 Urine Blood Small (NEGATIVE) 07/10/17 14:46 Urine Nitrate Negative (NEGATIVE) 07/10/17 14:46 Urine Bilirubin Negative (NEGATIVE) 07/10/17 14:46 Urine Urobilinogen 2.0 mg/dL (0.2-1.0) H 07/10/17 14:46 Ur Leukocyte Esterase Trace Lina/uL (Negative) 07/10/17 14:46 Urine RBC (Auto) 7 /hpf (0-3) H 07/10/17 14:46 Urine Microscopic WBC 2 /hpf (0-5) 07/10/17 14:46 Ur Squamous Epith Cells 4 /hpf (0-5) 07/10/17 14:46 Urine Bacteria Many (<OCC) H 07/10/17 14:46 Blood Type A POSITIVE 07/13/17 10:15 Antibody Screen Negative 07/13/17 10:15 Crossmatch See Detail 07/13/17 10:15 BBK History Checked Patient has bt 07/13/17 10:15 Discharge Exam - Head Exam Head Exam: ATRAUMATIC, NORMOCEPHALIC Discharge Plan - Discharge Medications Prescriptions: oxyCODONE/Acetaminophen [Percocet 5/325 mg Tab] 1 tab PO Q4 PRN #1 tab PRN Reason: Pain, Severe (8-10) Piperacillin/Tazobact 3.375 gm [Zosyn 3.375 in NS 100ml] 3.375 gm IVPB Q6 #28 bag Sulfamethoxazole/Trimethoprim [Bactrim Ds Tablet] 1 each PO BID #14 tablet - Follow Up Plan Condition: FAIR Disposition: REHAB FACILITY/REHAB UNIT Instructions: Cholecystitis (DC), Cholecystitis (GEN), Extended Spectrum Beta Lactamase (GEN) Additional Instructions: final dx choleductallithiasis hold plavix per dr liz puga akin sunday will follow on tcu Referrals: Benny Martinez MD [Staff Provider] - Ricky Shields MD [Staff Provider] - Kaveh Foreman MD, PhD [Staff Provider] -
== END 2017-07-17 17:17 | DRG 445 ==
LOC: H.ER 21:52 → H.ERHOLD 22:42 → H.MEDSURG1 07-11 02:32 → OBSVTOIN 07-11 14:55
PROVIDERS: ADMIT Family Medicine; ATTEND Family Medicine
DX: K80.62 Calculus of gallbladder and bile duct with acute cholecystitis without obstruction (principal); G81.14 Spastic hemiplegia affecting left nondominant side; G20 Parkinson's disease; I69.322 Dysarthria following cerebral infarction; N39.0 Urinary tract infection, site not specified; E03.9 Hypothyroidism, unspecified; E78.00 Pure hypercholesterolemia, unspecified; E78.5 Hyperlipidemia, unspecified; F42.9 Obsessive-compulsive disorder, unspecified; I10 Essential (primary) hypertension; K21.9 Gastro-esophageal reflux disease without esophagitis; Z79.82 Long term (current) use of aspirin; Z79.899 Other long term (current) drug therapy; Z86.718 Personal history of other venous thrombosis and embolism; Z86.73 Personal history of transient ischemic attack (TIA), and cerebral infarction without residual deficits; Z87.891 Personal history of nicotine dependence; Z90.710 Acquired absence of both cervix and uterus; F32.9 Major depressive disorder, single episode, unspecified; F41.9 Anxiety disorder, unspecified; G62.9 Polyneuropathy, unspecified; R74.0 Nonspecific elevation of levels of transaminase and lactic acid dehydrogenase [LDH]; R79.89 Other specified abnormal findings of blood chemistry

== ENCOUNTER 2017-07-20 07:21 | Day surgery (SDC) | payer MEDICARE, OTHER ==
[2017-07-20 08:54] VITALS: BMI 32.2
[2017-07-20] MEDS ORDERED: Lidocaine 1% Inj (20ml) ONE (09:08)
[2017-07-20 09:53] VITALS: RESP 18
--- NOTE | 2017-07-20 09:55 | CP.SDSHP ---
Same Day Surgery H & P - History Proposed Procedure: PICC placement Pre-Op Diagnosis: Poor venous access - Allergies Allergies: Allergies No Known Allergies Allergy (Verified 07/20/17 08:56) - Physical Exam Vital Signs: Vital Signs 07/20/17 07/20/17 08:50 09:53 Temperature 98.5 F 98.4 F Pulse Rate 70 66 Respiratory 20 18 Rate Blood Pressure 100/57 L 122/72 O2 Sat by Pulse 94 L 98 Oximetry - Impression Impression: Pt scheduled for cholecystectomy and refered for picc placement. Plan PICC placement. Pt. Evaluated Today:Candidate for Anesthesia & Procedure: No - Date & Time Date: 07/20/17 Time: 09:45 Short Stay Discharge - Short Stay Discharge Admitting Diagnosis/Reason for Visit: HAYLEY NEGRETE Referrals: Liat Go MD [Primary Care Provider] -
--- NOTE | 2017-07-20 09:57 | PCM.SURG1 ---
Surgeon's Initial Post Op Note - Surgeon's Notes Surgeon: Michael Madrigal MD Insurance Administrative Assistant: NONE Type of Anesthesia: Local Pre-Operative Diagnosis: Poor venous access Operative Findings: Patent right basilic vein Post-Operative Diagnosis: Poor venous access Operation Performed: Single lumen picc placement right basilic vein, 33 cm. Tip is in the SVC. Specimen/Specimens Removed: NONE Estimated Blood Loss: EBL {In ML}: 2 Blood Products Given: N/A Drains Used: No Drains Post-Op Condition: Fair Date of Surgery/Procedure: 07/20/17 Time of Surgery/Procedure: 09:50
[2017-07-20 10:53] VITALS: BP 115/71; PULSE 64; TEMP 98.9; O2SAT 95
--- NOTE | 2017-07-20 14:45 | VASCULAR ---
PROCEDURE: Date of procedure: 07/20/2017 Procedure: 1. Placement of a right arm PICC with ultrasound and fluoroscopic guidance, CPT 23751 2. PICC tip confirmation with spot radiograph and is in the superior vena cava Medications: 1 percent lidocaine Total Fluoro time: 1.6seconds Radiation: 0.16 MGy EBL: 2 cc HISTORY: Poor venous access TECHNIQUE: Following informed consent and procedure time-out, the patient was placed supine on the interventional table and the right arm prepped and draped in the usual sterile fashion. Ultrasound showed a patent and compressible right basilic vein. After the skin was anesthetized with lidocaine, the basilic vein was accessed with micro micropuncture technique using ultrasound guidance. A guidewire was then advanced under fluoroscopic guidance into the superior vena cava. An image documenting ultrasound guidance for vascular access was permanently saved. The length of the single-lumen 4 Turkish PICC was trimmed to 33 centimeters and advanced through a peel-away sheath. The PICC was position with tip of PICC confirm a spot radiograph the superior vena cava. The PICC was secured to the patient's skin. The PICC was flushed. A biopatch and sterile dressing was applied. IMPRESSION: Placement of a single-lumen 4 Turkish PICC trimmed to 33 centimeters via right basilic vein. The tip of the PICC is confirmed with spot radiograph and is in the superior vena cava.
--- NOTE | 2017-07-26 08:37 | CP.PCM.DIS ---
Provider - Provider Attending physician: Jerome Aguila, DNP, PLC TECHNICIAN Primary care physician: Liat Go MD Time Spent in preparation of Discharge (in minutes): 15 Discharge Plan - Follow Up Plan Condition: GOOD Disposition: Trans to Other Acute Care Hosp Additional Instructions: cleared for dc by surgery, no complaints. pain controlled final dx-cholecystitis, s/p cva Referrals: Liat Go MD [Primary Care Provider] -
== END 2017-07-20 10:15 | disposition short-term general hospital (02) ==
LOC: H.OPSURG 07:21
PROVIDERS: ATTEND Nurse Practitioner Adult Health
DX: Z45.2 Encounter for adjustment and management of vascular access device (principal)
CPT/HCPCS: 36569; 72HRC

== ENCOUNTER 2017-07-20 10:58 | Inpatient (IN) | payer MEDICARE, OTHER ==
[2017-07-20 08:54] VITALS: BMI 32.2
[2017-07-20] MEDS ORDERED: ceFAZolin IV 1 gm in Dextrose 1 GM/50 ML BAG IVPB ONE (11:40)
[2017-07-20] MEDS ORDERED: Iohexol 300 100 ML IJ ONE (11:41)
[2017-07-20] MEDS ORDERED: Lactated Ringer's 1,000 ML IV ONE (11:50)
[2017-07-20] MEDS ORDERED: Bupivacaine 0.5% Inj(30mL) ONE (11:54)
[2017-07-20] MEDS ORDERED: Piperacillin/Tazobact 3.375 gm Inj IVPB ONE (12:30)
[2017-07-20] MEDS ORDERED: Sodium Chloride 0.9% 1,000 ML IV SCH (14:15)
--- NOTE | 2017-07-20 14:18 | PCM.SURG1 ---
Surgeon's Initial Post Op Note - Surgeon's Notes Surgeon: Dr. Shields Rn Eligibility: Dr. Swan PGY3 Dr. Sams PGY2 Type of Anesthesia: General Endo, Local Pre-Operative Diagnosis: cholecystitis, biliary colic Operative Findings: chronically inflammed gallbladder, purulent bile, dense gallbladder adhesions Post-Operative Diagnosis: same Operation Performed: laparoscopic cholecystectomy Specimen/Specimens Removed: gallbladder Estimated Blood Loss: EBL {In ML}: 15 Blood Products Given: N/A Drains Used: No Drains Post-Op Condition: Good Date of Surgery/Procedure: 07/20/17 Time of Surgery/Procedure: 14:18
[2017-07-20] MEDS ORDERED: HYDROmorphone 0.5 mg/0.5 ml ISec IVP PRN ×2 (14:30→14:36)
[2017-07-20] MEDS ORDERED: Lactated Ringer's 1,000 ML IV SCH (14:45)
[2017-07-20] MEDS: Lactobacillus Acidophilus 500 MU Cap PO SCH (17:50)
[2017-07-20] MEDS: Piperacillin/Tazobact 3.375 GM in Sodium Chloride 0.9% 100 ML IVPB SCH ×2 (18:06→21:41)
[2017-07-20] MEDS: Oxycodone/Acetaminophen 5/325 mg Tab PO PRN (20:18)
--- NOTE | 2017-07-20 20:27 | OP ---
PROCEDURE DATE: PREOPERATIVE DIAGNOSIS: Cholecystitis. POSTOPERATIVE DIAGNOSIS: Cholecystitis. PROCEDURE: Laparoscopic cholecystectomy. SURGEON: Dr. Shields. CHAIRMAN CEO: Beny. SECOND CHAIRMAN CEO: Latrell. TYPE OF ANESTHESIA: General with endotracheal intubation. IV FLUID: Crystalloids ESTIMATED BLOOD LOSS: 25 mL. INTRAOPERATIVE FINDINGS: Cholecystitis. SPECIMEN: Gallbladder. BRIEF HISTORY: Mrs. Salcedo is a very pleasant 66-year-old female who came to the hospital with epigastric right upper quadrant abdominal pain and, upon further investigation, the patient was found to have elevated liver enzymes. The patient underwent MRCP that did not reveal any stones in the common bile duct; however, the study was suboptimal, but the patient's liver enzymes have improved. The patient, upon presentation to the hospital, was on Plavix and Plavix was held prior to surgery 5 days. All the risks and benefits of the procedure were explained to the patient and with the patient having a full understanding of all the risks and benefits involved, informed consent was obtained and the patient was taken to the operating room for above-stated procedure. DESCRIPTION OF PROCEDURE: The patient was brought into the operating room and placed supine on the operating table. Bilateral Flowtron boots were applied to the patient's lower extremities. After successful induction of the anesthesia and successful endotracheal intubation by the Anesthesia team, the patient's abdomen was prepped with ChloraPrep stick and draped in the standard surgical fashion. Prior to the beginning of the procedure, a timeout was called in the room and everyone in the room were in agreement. Using a Veress needle, the patient's abdomen was entered at the umbilicus and pneumoperitoneum was achieved with good opening pressures. Once this was accomplished, using 11-blade scalpel knife, approximately a 1-cm incision was made in the umbilicus in a longitudinal fashion. Subsequent to that, an 11-mm trocar was introduced into the patient's abdomen. At that point in time, 5-mm 0-degree scope was introduced into the patient's abdomen and abdomen was inspected. We immediately were able to visualize omentum that appeared to be stuck to the area where the gallbladder should be. Then, attention was turned to the subxiphoid area. Using an 11 blade scalpel knife, approximately 5 mm incision was made in a transverse fashion and subsequent to that, 5 mm trocar was introduced into the patient's abdomen. Then, attention was turned to the right side of the patient's abdomen. Using the 11-blade scalpel knife, two 5-mm incisions were made in a transverse fashion and subsequent to that two 5-mm trocars were introduced into the patient's abdomen. At that point in time, using suction and irrigation device, the omentum was teased off the gallbladder and the gallbladder was grasped by the fundus and the infundibulum. It appeared to be very inflamed and chronically inflamed as well. Then, using [place] dissector as well as suction/irrigation device, cystic duct and cystic artery were dissected out and a critical view of safety was achieved. At that point in time, the cystic duct was clipped with two clips proximal, one distal and transected with laparoscopic scissors. Same thing was done for the cystic artery. It was clipped with two clips proximal, one distal and transected with laparoscopic scissors. At this point in time, gallbladder was dissected off the gallbladder fossa using hook electrical cautery and once the gallbladder was completely freed up from the gallbladder fossa, Endo Catch bag was introduced into the patient's abdomen; gallbladder was placed inside of the bag and the bag was closed. At that point in time, the gallbladder fossa was copiously irrigated and fluid was suctioned out. Hemostasis was achieved with hook electrical cautery and at that point in time, 11 mm trocar together with the Endo Catch bag and the gallbladder were removed from the patient's abdomen and passed off to the [facility] as specimen. Fascial layer at the umbilical port site was closed with two interrupted 0-Vicryl sutures, one on the UR-5 needle and one on the UR-6 needle. Subsequent to that, the patient's abdomen was fully desufflated, the rest of the trocars were removed from the patient's abdomen, and the skin was closed with 4-0 Monocryl suture in a running subcuticular fashion. At the end of the procedure, incision sites were infiltrated with Marcaine anesthetic. The patient's abdomen was washed and dried and a Dermabond was applied to the incision sites. The patient was successfully extubated by the anesthesia team, transferred to the stretcher, and taken to the recovery room in a stable condition. At the end of the procedure, all instrument counts, needles, and sponges were correct. Ricky Shields MD [facility] # [id number]
[2017-07-20] MEDS: MELATONIN PO SCH (21:40)
[2017-07-20] MEDS ORDERED: Patient's Own Med (Atorvastatin [Lipitor] 80 MG) PO SCH (22:00)
[2017-07-21] MEDS: Oxycodone/Acetaminophen 5/325 mg Tab PO PRN ×4 (02:29→14:28)
[2017-07-21] MEDS: Piperacillin/Tazobact 3.375 GM in Sodium Chloride 0.9% 100 ML IVPB SCH ×4 (03:38→21:17)
[2017-07-21] MEDS: Levothyroxine 125 MCG TAB PO SCH (05:41)
[2017-07-21 07:08] LABS: BASO % 0.3 % (0.0-2.0); EOS % 0.1 % (0.0-4.0); LYMPH % 15.4 % (20.0-40.0); MEAN CELL VOLUME 94.1 fl (81.0-99.0); MEAN CORPUSCULAR HGB CONC 32.9 g/dL (33.0-37.0); MEAN PLATELET VOLUME 9.3 fl (7.2-11.7); MONO # 0.4 K/uL (0.0-0.8); MONO % 6.1 % (0.0-10.0); NEUT # 5.3 K/uL (1.8-7.0); NEUT % 78.1 % (50.0-75.0); NRBC % 0.1 % (0.0-0.0); RED CELL DISTRIBUTION WIDTH 15.3 % (11.5-14.5); WHITE BLOOD COUNT 6.8 K/uL (4.8-10.8)
[2017-07-21 07:12] LABS: ALB/GLOB RATIO 0.9 (1.0-2.1); ALKALINE PHOSPHATASE 241 U/L (38-126); ALT/SGPT 83 U/L (9-52); AST/SGOT 55 U/L (14-36); BILIRUBIN,TOTAL 0.7 mg/dl (0.2-1.3); BLOOD UREA NITROGEN 10 mg/dl (7-17); CALCIUM 8.1 mg/dL (8.4-10.2); CARBON DIOXIDE 23 mmol/L (22-30); CHLORIDE 108 mmol/L (98-107); GFR AFRICAN-AMERICAN > 60; GLUCOSE,RANDOM 113 mg/dL (65-105); POTASSIUM 4.4 MMOL/L (3.6-5.0); SODIUM 141 mmol/l (132-148); TOTAL PROTEIN 6.4 G/DL (6.3-8.2)
--- NOTE | 2017-07-21 07:36 | CP.PCM.PN ---
Subjective - Date & Time of Evaluation Date of Evaluation: 07/21/17 Time of Evaluation: 07:36 - Subjective Subjective: pt doing well, no complaints except surgical site pain. nof /c, n/v/d. surgical sites c/d/i. am labs noted. hgb within 0.6 points of preop hgb. case d/c w/ certified ophthalmic surgical assistant pendign approval for dc and plavix to be restarted. Objective - Vital Signs/Intake and Output Vital Signs (last 24 hours): Temp Pulse Resp BP Pulse Ox 97.7 F 75 18 103/62 94 L 07/21/17 00:32 07/21/17 00:32 07/21/17 00:32 07/21/17 00:32 07/21/17 00:32 - Medications Medications: Current Medications Acetaminophen (Tylenol 325mg Tab) 650 mg PO Q6 PRN PRN Reason: Fever >100.4 F Atorvastatin Calcium (Lipitor) 80 mg PO [facility] Cyclobenzaprine HCl (Flexeril) 5 mg PO TID PRN PRN Reason: Muscle spasm Famotidine (Pepcid) 20 mg PO Q12 [facility] OF [facility] Last Admin: 07/20/17 20:18 Dose: 20 mg Gabapentin (Neurontin) 300 mg PO BID [facility] Last Admin: 07/20/17 18:06 Dose: 300 mg Home Med (Melatonin [Melatonin]) 1 tab PO HS [facility] Last Admin: 07/20/17 21:40 Dose: 1 tab Sodium Chloride (Sodium Chloride 0.9%) 1,000 mls @ 100 mls/hr IV .Q10H ON LICENSE OF [facility] Last Admin: 07/21/17 02:34 Dose: 100 mls/hr Piperacillin Sod/Tazobactam (Sod 3.375 gm/ Sodium Chloride) 100 mls @ 100 mls/ hr IVPB Q6 ON [facility] OF [facility] PRN Reason: Protocol Last Admin: 07/21/17 03:38 Dose: 100 mls/hr Lactated Ringer's (Lactated Ringer's) 1,000 mls @ 100 mls/hr IV .Q10H ON LICENSE OF [facility] Lactobacillus Acidophilus (Bacid Acidophilus) 1 cap PO BID ON [facility] OF [facility] Last Admin: 07/20/17 17:50 Dose: 1 cap Levothyroxine Sodium (Synthroid) 125 mcg PO DAILY@0630 [facility] Last Admin: 07/21/17 05:41 Dose: 125 mcg Morphine Sulfate (Morphine) 4 mg IVP Q4 PRN PRN Reason: Pain, severe (8-10) Last Admin: 07/21/17 05:42 Dose: 4 mg Ondansetron HCl (Zofran Inj) 4 mg IVP Q4 PRN PRN Reason: Nausea/Vomiting Oxycodone/Acetaminophen (Percocet 5/325 Mg Tab) 1 tab PO Q4 PRN PRN Reason: Pain, moderate (4-7) Stop: 07/23/17 14:09 Last Admin: 07/21/17 06:49 Dose: 1 tab Oxycodone/Acetaminophen (Percocet 5/325 Mg Tab) 2 tab PO Q4 PRN PRN Reason: pain 7-10 Stop: 07/24/17 07:35 Sertraline HCl (Zoloft) 12.5 mg PO DAILY [facility] Tramadol HCl (Ultram) 50 mg PO Q6 [facility] Last Admin: 07/21/17 03:37 Dose: 50 mg - Labs Labs: 07/21/17 05:30 07/21/17 05:30 - Constitutional Appears: Well, Non-toxic, No Acute Distress - Head Exam Head Exam: ATRAUMATIC, NORMAL INSPECTION, NORMOCEPHALIC - Eye Exam Eye Exam: EOMI, Normal appearance, PERRL Pupil Exam: NORMAL ACCOMODATION, PERRL - ENT Exam ENT Exam: Mucous Membranes Moist, Normal Exam - Neck Exam Neck Exam: Full ROM, Normal Inspection. absent: Lymphadenopathy - Respiratory Exam Respiratory Exam: Clear to Ausculation Bilateral, NORMAL BREATHING PATTERN - Cardiovascular Exam Cardiovascular Exam: REGULAR RHYTHM, RRR, +S1, +S2. absent: Murmur - GI/Abdominal Exam GI & Abdominal Exam: Soft, Tenderness, Normal Bowel Sounds Additional comments: mild surgical site tenderness, dressing c/d/i, - Extremities Exam Extremities Exam: Full ROM, Normal Capillary Refill, Normal Inspection. absent : Joint Swelling, Pedal Edema - Back Exam Back Exam: NORMAL INSPECTION - Neurological Exam Neurological Exam: Alert, Awake, CN II-XII Intact, Normal Gait, Oriented x3 - Psychiatric Exam Psychiatric exam: Normal Affect, Normal Mood - Skin Skin Exam: Dry, Intact, Normal Color, Warm Assessment and Plan (1) CVA (cerebral vascular accident) Assessment & Plan: for dharmesh cont asa restart plavix today when cleared Status: Acute (2) Choledocholithiasis with acute cholecystitis Assessment & Plan: s/p lap akin, zosyn, pain control surgery Status: Acute (3) DVT prophylaxis Assessment & Plan: scd and ae hose asa, plavix to be restarted when cleared Status: Acute
[2017-07-21] MEDS: Lactobacillus Acidophilus 500 MU Cap PO SCH ×2 (08:30→18:01)
[2017-07-21] MEDS ORDERED: Simethicone 80 mg Chewtab PO STA (09:18)
[2017-07-21] MEDS: Simethicone 80 mg Chewtab PO PRN ×2 (14:27→21:23)
--- NOTE | 2017-07-21 18:01 | CP.PCM.PN ---
Subjective - Date & Time of Evaluation Date of Evaluation: 07/21/17 Time of Evaluation: 08:50 - Subjective Subjective: Patient seen and examined this AM. [place]. Patient states that she is in severe pain not well controlled with PO pain medication. Patient denies any nausea, vomiting, chest pain, SOB, but is not taking deep breaths due ot the pain. Patient states that she has not tried the liquid diet because she is afraid of more pain. Objective - Vital Signs/Intake and Output Vital Signs (last 24 hours): Temp Pulse Resp BP Pulse Ox 98.1 F 75 20 154/86 H 91 L 07/21/17 16:41 07/21/17 16:41 07/21/17 16:41 07/21/17 16:41 07/21/17 16:41 - Medications Medications: Current Medications Acetaminophen (Tylenol 325mg Tab) 650 mg PO Q6 PRN PRN Reason: Fever >100.4 F Atorvastatin Calcium (Lipitor) 80 mg PO HS [facility] Last Admin: 07/21/17 09:11 Dose: 80 mg Clopidogrel Bisulfate (Plavix) 75 mg PO DAILY [facility] Last Admin: 07/21/17 14:30 Dose: 75 mg Cyclobenzaprine HCl (Flexeril) 5 mg PO TID PRN PRN Reason: Muscle spasm Famotidine (Pepcid) 20 mg PO Q12 [facility] Last Admin: 07/21/17 09:11 Dose: 20 mg Gabapentin (Neurontin) 300 mg PO BID [facility] Last Admin: 07/21/17 09:11 Dose: 300 mg Home Med (Melatonin [Melatonin]) 1 tab PO [facility] Last Admin: 07/20/17 21:40 Dose: 1 tab Sodium Chloride (Sodium Chloride 0.9%) 1,000 mls @ 100 mls/hr IV .Q10H [facility] Last Admin: 07/21/17 02:34 Dose: 100 mls/hr Piperacillin Sod/Tazobactam (Sod 3.375 gm/ Sodium Chloride) 100 mls @ 100 mls/ hr IVPB Q6 [facility] PRN Reason: Protocol Last Admin: 07/21/17 09:12 Dose: 100 mls/hr Lactated Ringer's (Lactated Ringer's) 1,000 mls @ 100 mls/hr IV .Q10H [facility] Lactobacillus Acidophilus (Bacid Acidophilus) 1 cap PO BID [facility] Last Admin: 07/21/17 08:30 Dose: 1 cap Levothyroxine Sodium (Synthroid) 125 mcg PO DAILY@0630 [facility] Last Admin: 07/21/17 05:41 Dose: 125 mcg Ondansetron HCl (Zofran Inj) 4 mg IVP Q4 PRN PRN Reason: Nausea/Vomiting Oxycodone/Acetaminophen (Percocet 5/325 Mg Tab) 1 tab PO Q4 PRN PRN Reason: Pain, moderate (4-7) Stop: 07/23/17 14:09 Last Admin: 07/21/17 06:49 Dose: 1 tab Oxycodone/Acetaminophen (Percocet 5/325 Mg Tab) 2 tab PO Q4 PRN PRN Reason: pain 7-10 Stop: 07/24/17 07:35 Last Admin: 07/21/17 14:28 Dose: 2 tab Sertraline HCl (Zoloft) 12.5 mg PO DAILY [facility] Last Admin: 07/21/17 13:08 Dose: 12.5 mg Simethicone (Mylicon Chew Tab) 80 mg PO TID PRN PRN Reason: Flatulence Last Admin: 07/21/17 14:27 Dose: 80 mg Tramadol HCl (Ultram) 50 mg PO Q6 [facility] Last Admin: 07/21/17 09:05 Dose: 50 mg - Labs Labs: 07/21/17 05:30 07/21/17 05:30 - Constitutional Appears: Non-toxic, In Acute Distress - Head Exam Head Exam: ATRAUMATIC, NORMOCEPHALIC - Eye Exam Eye Exam: Normal appearance. absent: Conjunctival injection, Scleral icterus - ENT Exam ENT Exam: Mucous Membranes Moist - Respiratory Exam Respiratory Exam: NORMAL BREATHING PATTERN. absent: Accessory Muscle Use, Respiratory Distress - Cardiovascular Exam Cardiovascular Exam: RRR - GI/Abdominal Exam GI & Abdominal Exam: Soft, Tenderness (RUQ). absent: Distended Additional comments: surgical dressing c/d/i - Extremities Exam Extremities Exam: absent: Calf Tenderness, Pedal Edema, Tenderness Additional comments: paralysis of the left upper and lower extremities - Neurological Exam Neurological Exam: Altered (lethargic), Oriented x3 - Psychiatric Exam Psychiatric exam: Agitated, Anxious, Flat Affect - Skin Skin Exam: Dry, Normal Color, Warm Assessment and Plan - Assessment and Plan (Free Text) Assessment: 66F with cholecystitis POD#1 s/p laparoscopic cholecystectomy Plan: -Keep patient admitted one more day -Optimize pain control -Trend CBC/CMP -serial abdominal exams -May start regular diet for dinner -Continue IV antibiotics -OOBT, PT, incentive spirometer -Will continue to follow Seen by and discussed with Dr. Eulalio Sams PGY2
[2017-07-21] MEDS: MELATONIN PO SCH (21:19)
[2017-07-22] MEDS: Oxycodone/Acetaminophen 5/325 mg Tab PO PRN ×2 (00:27→06:38)
[2017-07-22] MEDS: Piperacillin/Tazobact 3.375 GM in Sodium Chloride 0.9% 100 ML IVPB SCH ×2 (03:58→09:00)
[2017-07-22] MEDS: Levothyroxine 125 MCG TAB PO SCH (06:38)
[2017-07-22] MEDS: Lactobacillus Acidophilus 500 MU Cap PO SCH (08:33)
--- NOTE | 2017-07-22 08:44 | CP.PCM.PN ---
Subjective - Date & Time of Evaluation Date of Evaluation: 07/22/17 Time of Evaluation: 07:50 - Subjective Subjective: Patient seen and examined this AM. [place]. Patient reports persistent pain currently controlled on PO pain medication. Patient denies nausea, vomiting, fevers, chills, but states she had some SOB. Objective - Vital Signs/Intake and Output Vital Signs (last 24 hours): Temp Pulse Resp BP Pulse Ox 97.9 F 84 18 102/78 94 L 07/22/17 07:56 07/22/17 07:56 07/22/17 07:56 07/22/17 07:56 07/22/17 07:56 - Medications Medications: Current Medications Acetaminophen (Tylenol 325mg Tab) 650 mg PO Q6 PRN PRN Reason: Fever >100.4 F Atorvastatin Calcium (Lipitor) 80 mg PO HS [facility] Last Admin: 07/21/17 21:26 Dose: Not Given Clopidogrel Bisulfate (Plavix) 75 mg PO DAILY [facility] Last Admin: 07/22/17 08:33 Dose: 75 mg Cyclobenzaprine HCl (Flexeril) 5 mg PO TID PRN PRN Reason: Muscle spasm Famotidine (Pepcid) 20 mg PO Q12 [facility] Last Admin: 07/22/17 08:30 Dose: 20 mg Gabapentin (Neurontin) 300 mg PO BID [facility] Last Admin: 07/22/17 08:30 Dose: 300 mg Home Med (Melatonin [Melatonin]) 1 tab PO HS [facility] Last Admin: 07/21/17 21:19 Dose: 1 tab Sodium Chloride (Sodium Chloride 0.9%) 1,000 mls @ 100 mls/hr IV .Q10H [facility] Last Admin: 07/21/17 02:34 Dose: 100 mls/hr Piperacillin Sod/Tazobactam (Sod 3.375 gm/ Sodium Chloride) 100 mls @ 100 mls/ hr IVPB Q6 [facility] PRN Reason: Protocol Last Admin: 07/22/17 03:58 Dose: 100 mls/hr Ketorolac Tromethamine (Toradol) 15 mg IVP Q6 PRN PRN Reason: Pain, severe (8-10) Lactobacillus Acidophilus (Bacid Acidophilus) 1 cap PO BID [facility] Last Admin: 07/22/17 08:33 Dose: 1 cap Levothyroxine Sodium (Synthroid) 125 mcg PO DAILY@0630 [facility] Last Admin: 07/22/17 06:38 Dose: 125 mcg Ondansetron HCl (Zofran Inj) 4 mg IVP Q4 PRN PRN Reason: Nausea/Vomiting Oxycodone/Acetaminophen (Percocet 5/325 Mg Tab) 1 tab PO Q4 PRN PRN Reason: Pain, moderate (4-7) Stop: 07/23/17 14:09 Last Admin: 07/22/17 06:38 Dose: 1 tab Oxycodone/Acetaminophen (Percocet 5/325 Mg Tab) 2 tab PO Q4 PRN PRN Reason: pain 7-10 Stop: 07/24/17 07:35 Last Admin: 07/21/17 14:28 Dose: 2 tab Sertraline HCl (Zoloft) 12.5 mg PO DAILY [facility] Last Admin: 07/22/17 08:30 Dose: 12.5 mg Simethicone (Mylicon Chew Tab) 80 mg PO TID PRN PRN Reason: Flatulence Last Admin: 07/21/17 21:23 Dose: 80 mg - Labs Labs: 07/21/17 05:30 07/21/17 05:30 - Constitutional Appears: Non-toxic, No Acute Distress - Head Exam Head Exam: ATRAUMATIC, NORMOCEPHALIC - Eye Exam Eye Exam: Normal appearance. absent: Conjunctival injection, Scleral icterus - ENT Exam ENT Exam: Mucous Membranes Moist, Normal Oropharynx - Respiratory Exam Respiratory Exam: NORMAL BREATHING PATTERN. absent: Accessory Muscle Use, Respiratory Distress - Cardiovascular Exam Cardiovascular Exam: RRR - GI/Abdominal Exam GI & Abdominal Exam: Distended (moderate), Soft, Tenderness (RUQ) Additional comments: surgical incisions well approximated, no erythema or drainage - Extremities Exam Extremities Exam: absent: Calf Tenderness, Pedal Edema, Tenderness - Neurological Exam Neurological Exam: Alert, Awake, Oriented x3 - Psychiatric Exam Psychiatric exam: Normal Affect, Normal Mood - Skin Skin Exam: Dry, Normal Color, Warm Assessment and Plan - Assessment and Plan (Free Text) Assessment: 66F POD#2 s/p laparoscopic cholecystectomy Plan: -pain improved and tolerated on PO pain medication. Clinically improving. -No leukocytosis, CMP pending -Follow up CMP, monitor diet tolerance and pain -Continue PO pain and nausea medication PRN Discussed with Dr. Tsai, further recs per him Mee Sams PGY2
[2017-07-22 09:01] LABS: BASO % 0.3 % (0.0-2.0); EOS % 0.1 % (0.0-4.0); HEMATOCRIT 25.6 % (34.0-47.0); LYMPH # 1.1 K/uL (1.0-4.3); LYMPH % 15.6 % (20.0-40.0); MEAN CELL VOLUME 93.3 fl (81.0-99.0); MEAN CORPUSCULAR HGB CONC 33.2 g/dL (33.0-37.0); MEAN PLATELET VOLUME 8.8 fl (7.2-11.7); MONO # 0.4 K/uL (0.0-0.8); MONO % 5.9 % (0.0-10.0); NEUT # 5.5 K/uL (1.8-7.0); NEUT % 78.1 % (50.0-75.0); RED CELL DISTRIBUTION WIDTH 15.4 % (11.5-14.5)
--- NOTE | 2017-07-22 09:16 | CP.PCM.PN ---
Subjective - Date & Time of Evaluation Date of Evaluation: 07/22/17 Time of Evaluation: 09:14 - Subjective Subjective: doing well, less pain. no dyspnea. pt initially stated she felt sob but talked in full sentences and later reported no sob. seen w/ assistant to the vice president. all srugical site c/di/i hgb stable, lft pending Objective - Vital Signs/Intake and Output Vital Signs (last 24 hours): Temp Pulse Resp BP Pulse Ox 97.9 F 84 18 102/78 94 L 07/22/17 07:56 07/22/17 07:56 07/22/17 07:56 07/22/17 07:56 07/22/17 07:56 - Medications Medications: Current Medications Acetaminophen (Tylenol 325mg Tab) 650 mg PO Q6 PRN PRN Reason: Fever >100.4 F Atorvastatin Calcium (Lipitor) 80 mg PO HS [facility] Last Admin: 07/21/17 21:26 Dose: Not Given Clopidogrel Bisulfate (Plavix) 75 mg PO DAILY [facility] Last Admin: 07/22/17 08:33 Dose: 75 mg Cyclobenzaprine HCl (Flexeril) 5 mg PO TID PRN PRN Reason: Muscle spasm Famotidine (Pepcid) 20 mg PO Q12 [facility] Last Admin: 07/22/17 08:30 Dose: 20 mg Gabapentin (Neurontin) 300 mg PO BID [facility] Last Admin: 07/22/17 08:30 Dose: 300 mg Home Med (Melatonin [Melatonin]) 1 tab PO HS [facility] Last Admin: 07/21/17 21:19 Dose: 1 tab Sodium Chloride (Sodium Chloride 0.9%) 1,000 mls @ 100 mls/hr IV .Q10H [facility] Last Admin: 07/21/17 02:34 Dose: 100 mls/hr Piperacillin Sod/Tazobactam (Sod 3.375 gm/ Sodium Chloride) 100 mls @ 100 mls/ hr IVPB Q6 [facility] PRN Reason: Protocol Last Admin: 07/22/17 09:00 Dose: 100 mls/hr Ketorolac Tromethamine (Toradol) 15 mg IVP Q6 PRN PRN Reason: Pain, severe (8-10) Lactobacillus Acidophilus (Bacid Acidophilus) 1 cap PO BID [facility] Last Admin: 07/22/17 08:33 Dose: 1 cap Levothyroxine Sodium (Synthroid) 125 mcg PO DAILY@0630 [facility] Last Admin: 07/22/17 06:38 Dose: 125 mcg Ondansetron HCl (Zofran Inj) 4 mg IVP Q4 PRN PRN Reason: Nausea/Vomiting Oxycodone/Acetaminophen (Percocet 5/325 Mg Tab) 1 tab PO Q4 PRN PRN Reason: Pain, moderate (4-7) Stop: 07/23/17 14:09 Last Admin: 07/22/17 06:38 Dose: 1 tab Oxycodone/Acetaminophen (Percocet 5/325 Mg Tab) 2 tab PO Q4 PRN PRN Reason: pain 7-10 Stop: 07/24/17 07:35 Last Admin: 07/21/17 14:28 Dose: 2 tab Sertraline HCl (Zoloft) 12.5 mg PO DAILY [facility] Last Admin: 07/22/17 08:30 Dose: 12.5 mg Simethicone (Mylicon Chew Tab) 80 mg PO TID PRN PRN Reason: Flatulence Last Admin: 07/21/17 21:23 Dose: 80 mg - Labs Labs: 07/22/17 08:40 07/21/17 05:30 - Constitutional Appears: Well, Non-toxic, No Acute Distress - Head Exam Head Exam: ATRAUMATIC, NORMAL INSPECTION, NORMOCEPHALIC - Eye Exam Eye Exam: EOMI, Normal appearance, PERRL Pupil Exam: NORMAL ACCOMODATION, PERRL - ENT Exam ENT Exam: Mucous Membranes Moist, Normal Exam - Neck Exam Neck Exam: Full ROM, Normal Inspection. absent: Lymphadenopathy - Respiratory Exam Respiratory Exam: Clear to Ausculation Bilateral, NORMAL BREATHING PATTERN - Cardiovascular Exam Cardiovascular Exam: REGULAR RHYTHM, +S1, +S2. absent: Murmur - GI/Abdominal Exam GI & Abdominal Exam: Soft, Normal Bowel Sounds. absent: Tenderness Additional comments: states only has abd pain w/ move,ent cough/sneezing. surgical sites c/d/i - Extremities Exam Extremities Exam: Full ROM, Normal Capillary Refill, Normal Inspection. absent : Joint Swelling, Pedal Edema - Back Exam Back Exam: NORMAL INSPECTION - Neurological Exam Neurological Exam: Alert, Awake, CN II-XII Intact, Normal Gait, Oriented x3 - Psychiatric Exam Psychiatric exam: Normal Affect, Normal Mood - Skin Skin Exam: Dry, Intact, Normal Color, Warm Assessment and Plan (1) CVA (cerebral vascular accident) Status: Acute (2) Choledocholithiasis with acute cholecystitis Status: Acute (3) DVT prophylaxis Status: Acute - Assessment and Plan (Free Text) Assessment: (1) CVA (cerebral vascular accident) Assessment & Plan: for dharmesh cont asa restart plavix Status: Acute (2) Choledocholithiasis with acute cholecystitis Assessment & Plan: s/p lap akin, zosyn, pain control surgery ?? dc today if cleared by surgery Status: Acute (3) DVT prophylaxis Assessment & Plan: scd and ae hose asa, plavix Status: Acute
[2017-07-22 09:58] LABS: ALKALINE PHOSPHATASE 253 U/L (38-126); ALT/SGPT 70 U/L (9-52); AST/SGOT 38 U/L (14-36); BILIRUBIN,TOTAL 0.9 mg/dl (0.2-1.3); BLOOD UREA NITROGEN 12 mg/dl (7-17); CALCIUM 8.3 mg/dL (8.4-10.2); CARBON DIOXIDE 24 mmol/L (22-30); CHLORIDE 107 mmol/L (98-107); GFR AFRICAN-AMERICAN > 60; GLUCOSE,RANDOM 105 mg/dL (65-105); POTASSIUM 3.9 MMOL/L (3.6-5.0); SODIUM 141 mmol/l (132-148); TOTAL PROTEIN 6.6 G/DL (6.3-8.2)
[2017-07-22 10:00] LABS: ALB/GLOB RATIO 0.9 (1.0-2.1)
[2017-07-22 13:21] VITALS: BP 122/85; PULSE 85; RESP 20; TEMP 98.2; O2SAT 96
== END 2017-07-22 13:52 | DRG 418 ==
LOC: H.OPSURG 10:58 → H.MEDSURG1 14:08 → UNDOADMIN 14:08 → H.MEDSURG1 16:27 → H.OPSURG 16:29 → H.MEDSURG1 16:37
PROVIDERS: ADMIT Family Medicine; ATTEND Family Medicine
PROC: 0FT44ZZ Resection of Gallbladder, Percutaneous Endoscopic Approach (ICD-10-PCS; principal; 2017-07-20 11:30)
DX: K80.42 Calculus of bile duct with acute cholecystitis without obstruction (principal); I69.354 Hemiplegia and hemiparesis following cerebral infarction affecting left non-dominant side; I10 Essential (primary) hypertension; E78.5 Hyperlipidemia, unspecified; E03.9 Hypothyroidism, unspecified